=== PATIENT | female | born 1960 | race African-American/Black ===

== ENCOUNTER 2020-11-27 06:41 | Day surgery (SDC) | payer OTHER, SELFPAY ==
[2020-08-16 09:40] VITALS: BMI 32.9
--- NOTE | 2020-08-17 10:19 | P.CONAN_ITS ---
HPI - Anesthesia Eval Consult details Narrative: Resched to 10/19/20 60yo F for colonoscopy: screening [facility] Past Medical History Medical History Diabetes Diabetic neuropathy Edema of both lower extremities GERD (gastroesophageal reflux disease) History of back pain Hyperlipidemia Surgical History Surgical History History of back surgery Hx of bilateral cataract extraction Hx of cholecystectomy Hx of colonoscopy with polypectomy Social History Social History Smoking Status: Never smoker Meds Allergies Allergy/AdvReac Type Severity Reaction Status Date / Time No Known Allergies Allergy Verified 08/16/20 09:21 Home Medications Medication Instructions Recorded Confirmed Type docosahexaenoic acid-epa [Fish Oil 1 cap PO DAILY 08/16/20 08/16/20 History (with DHA-EPA)] ferrous sulfate 325 mg PO DAILY 08/16/20 08/16/20 History gabapentin 100 mg PO BID 08/16/20 08/16/20 History glyburide 5 mg PO BID 08/16/20 08/16/20 History metformin 1,000 mg PO BEDTIME 08/16/20 08/16/20 History metformin 500 mg PO DAILY@0730 08/16/20 08/16/20 History omeprazole 40 mg PO DAILY 08/16/20 08/16/20 History Exam Exam Date and Time: August 17, 2020 1019 Height,Weight and Vital Signs: Height 5 ft 3 in Weight 84.368 kg Assessment and Plan Assessment Anesthesia Assessment: Chart Reviewed
[2020-11-21 09:59] VITALS: BMI 33.3
--- NOTE | 2020-11-26 10:15 | P.CONAN_ITS ---
Documented by User: Aimee Hauser 11/26/20 10:16 HPI - Anesthesia Eval Consult details Narrative: 60yo F for Colonoscopy PMFSH Past Medical History Medical History Anemia Diabetes Diabetic neuropathy Edema of both lower extremities GERD (gastroesophageal reflux disease) History of back pain Hyperlipidemia Surgical History Surgical History History of back surgery Hx of bilateral cataract extraction Hx of cholecystectomy Hx of colonoscopy with polypectomy Social History Social History Are you a primary direct care provider to a significant other at home: No Do you presently have visiting nurse or other home services: No Smoking Status: Never smoker Use of substances other than those prescribed or required for medical reasons: No Have you been hit, kicked, punched, or otherwise hurt by someone within the past year? If so, by whom?: No Advance Directives: No Advance Directives Information Provided: No Advance Directives on File: No Recently lost weight without trying: No Meds Allergies Allergy/AdvReac Type Severity Reaction Status Date / Time No Known Allergies Allergy Verified 11/27/20 06:59 Home Medications Medication Instructions Recorded Confirmed Type docosahexaenoic acid-epa [Fish Oil 1 cap PO DAILY 08/16/20 08/16/20 History (with DHA-EPA)] ferrous sulfate 325 mg PO DAILY 08/16/20 08/16/20 History gabapentin 100 mg PO BID 08/16/20 08/16/20 History glyburide 5 mg PO BID 08/16/20 08/16/20 History metformin 1,000 mg PO BEDTIME 08/16/20 08/16/20 History metformin 500 mg PO DAILY@0730 08/16/20 08/16/20 History omeprazole 40 mg PO DAILY 08/16/20 08/16/20 History atorvastatin 1 tab PO DAILY 11/21/20 11/21/20 History multivitamin 1 tab PO DAILY 11/21/20 11/21/20 History Exam Exam Date and Time: November 26, 2020 1015 Height,Weight and Vital Signs: Height 5 ft 2.5 in Weight 83.915 kg Assessment and Plan Assessment Anesthesia Assessment: Chart Reviewed Documented by User: Ankita Ayala 11/27/20 07:16 PMFSH Past Medical History Medical History Anemia Diabetes Diabetic neuropathy Edema of both lower extremities GERD (gastroesophageal reflux disease) History of back pain Hyperlipidemia Surgical History Surgical History History of back surgery Hx of bilateral cataract extraction Hx of cholecystectomy Hx of colonoscopy with polypectomy Social History Social History Are you a primary direct care provider to a significant other at home: No Do you presently have visiting nurse or other home services: No Smoking Status: Never smoker Use of substances other than those prescribed or required for medical reasons: No Have you been hit, kicked, punched, or otherwise hurt by someone within the past year? If so, by whom?: No Advance Directives: No Advance Directives Information Provided: No Advance Directives on File: No Recently lost weight without trying: No Meds Allergies Allergy/AdvReac Type Severity Reaction Status Date / Time No Known Allergies Allergy Verified 11/27/20 06:59 Home Medications Medication Instructions Recorded Confirmed Type docosahexaenoic acid-epa [Fish Oil 1 cap PO DAILY 08/16/20 08/16/20 History (with DHA-EPA)] ferrous sulfate 325 mg PO DAILY 08/16/20 08/16/20 History gabapentin 100 mg PO BID 08/16/20 08/16/20 History glyburide 5 mg PO BID 08/16/20 08/16/20 History metformin 1,000 mg PO BEDTIME 08/16/20 08/16/20 History metformin 500 mg PO DAILY@0730 08/16/20 08/16/20 History omeprazole 40 mg PO DAILY 08/16/20 08/16/20 History atorvastatin 1 tab PO DAILY 11/21/20 11/21/20 History multivitamin 1 tab PO DAILY 11/21/20 11/21/20 History Exam Airway Mallampati Class: III TM Dist: >3cm Neck ROM: Full Heart: RRR Lungs: CTA
[2020-11-27 06:59] VITALS: BP 128/66; PULSE 90; RESP 18; TEMP 36.3; O2SAT 97
[2020-11-27 07:10] LABS: Glucose, Whole Blood 148 mg/dL (60-115)
[2020-11-27] MEDS: Lactated Ringers 1,000 ML 50 ML IVCONT (07:16)
--- NOTE | 2020-11-27 07:16 | P.OP_ITS ---
Operative Note Operative Note Date of Service: 11/27/20 Narrative: Pre-op diagnosis: colon cancer screening, hx of colon polyps Post-op diagnosis: other (Colon polyps, diverticulosis) Procedure: COLONOSCOPY TO ASCENDING COLON WITH SNARE POLYPECTOMY Consent: Indications for the procedure and potential complications of bleeding, perforation, reaction to medications and missed diagnosis were discussed with the patient and informed consent was obtained. Instrument: Olympus PCF H 190 L variable stiffness pediatric colonoscope Monitoring: Vital signs and clinical assessment, intermittent blood pressure monitoring, continuous EKG monitoring, Pulse oximetry and Carbon Dioxide monitoring were done throughout the procedure. Colon withdrawl time was 23 minutes. Procedure: The patient was placed in the left lateral decubitis position and pre-procedure medications were administered. After a digital rectal examination of the ano-rectum, the video colonoscope was inserted into the rectum and advanced through the colon to the cecum. The colonoscope was slowly withdrawn in a retrograde panoramic fashion and the colon mucosa was carefully examined including a retroflexed view of the rectum. Findings and interventions are described below. Procedure Difficulty: Without difficulty - colon was long and tortuous and there was some loop formation. Findings: Terminal Ileum: Not evaluated Cecum: Not evaluated due to poor prep - undigested vegetable matter filling the cecum Ascending Colon: A 15 mm sessile polyp in mid AC over a fold removed with a hot snare Transverse Colon: Normal Descending Colon: Normal Sigmoid Colon: Moderate diverticulosis Rectum: Normal Ano-rectum: Normal Colon preparation: Poor in the cecum and Good in the remaining colon after copious irrigation Impression and Post Procedure Diagnosis: Colonoscopy Findings: One medium sized polyp removed Poor prep in the cecum Moderate diverticulosis seen in the sigmoid colon Plan: Await pathology results Patient has an appointment on 12/25/20 in the GI Clinic with Jo Klein NP . Repeat Colonoscopy in 1 year due to poor prep in the cecum. Above findings were reviewed with the patient and colon polyps and diverticulo sis handouts were given in the discharge area Surgeon: Criss Rodriguez MD Anesthesia: MAC (Dr Hewitt) Estimated blood loss (mL): 0 Pathology: other (A. AC polyp x 1) Condition: stable Disposition: PACU
--- NOTE | 2020-11-27 07:16 | P.HPSUR_ITS ---
Pre-Procedural Eval Section A The patient is an INPATIENT: No The History & Physical has been completed within 30 days and I have reviewed it.: No Section B Chief Complaint: hx Adenomatous Polyps Details of Present Illness: She had a prior colonoscopy in 2011 and she had polyps removed at [facility]. She suffers constpation but she has a regimen to control it. She denies any upper GI problems. There are no prior problems with anesthesia or sedation. She denies any cardiac or respiratory problems. Her brother had lung and stomach cancer and at age 56. Relevant Family History (Specify if Yes): Yes Present Medications: see Short Stay Collaborative assessment Medical History: Significant History (Mood NIDDM Diabetic neuropathy Lower extremity edema High cholesterol GERD) History of Previous Operations: Relevant previous surgery/procedure and date(s) (Cholecystectomy 2018 Lumbar disc replacement ) Allergies: Allergies Allergy/AdvReac Type Severity Reaction Status Date / Time No Known Allergies Allergy Verified 11/27/20 06:59 Review of Systems Sugical H&P ROS: Negative: Constitution, Cardiovascular and Respiratory and Yes, Specify: Gastrointestinal (constipation) Exam Surgical H&P Exam: Normal: Heart, Normal: Lungs, Normal: Extremities and Normal: Abdomen Plan Diagnosis/Plan: Unchanged I have reviewed the history and physical and performed a pertinent physical examination on my patient. No changes have occurred unless specified.
[2020-11-27 08:18] VITALS: BP 97/55; PULSE 85; RESP 16; TEMP 36.6; O2SAT 98
[2020-11-27 08:33] VITALS: BP 135/71; PULSE 77; RESP 16; TEMP 36.6; O2SAT 99
--- NOTE | 2020-11-27 09:47 | HO.POSTANES ---
Post Anesthesia Evaluation Post Anesthesia Evaluation Vital Signs: Vital Signs Temp Pulse Resp BP Pulse Ox 11/27/20 08:33 97.8 F 77 16 135/71 99 11/27/20 08:18 97.8 F 85 16 97/55 L 98 11/27/20 06:59 97.3 F 90 18 128/66 97 Anesthesia: Monitored and General Mental Status: Awake Nausea/Vomiting: None Hydration: Adequate Anesthesia-Related Issues: No Anes. Related Issues
== END 2020-11-27 10:00 | disposition home or self-care (01) ==
PROVIDERS: PCP Internal Medicine; Visit Provider Internal Medicine Gastroenterology
PROC: 0DJD8ZZ Inspection of Lower Intestinal Tract, Via Natural or Artificial Opening Endoscopic (ICD-10-PCS; CPT 45378; principal; 2020-11-27 07:30)
DX: Z12.11 Encounter for screening for malignant neoplasm of colon (principal); Z86.010 Personal history of colon polyps; D12.2 Benign neoplasm of ascending colon; K57.30 Diverticulosis of large intestine without perforation or abscess without bleeding; K21.9 Gastro-esophageal reflux disease without esophagitis; E11.40 Type 2 diabetes mellitus with diabetic neuropathy, unspecified; E78.5 Hyperlipidemia, unspecified; R60.0 Localized edema; Z90.49 Acquired absence of other specified parts of digestive tract; Z79.84 Long term (current) use of oral hypoglycemic drugs; Z79.899 Other long term (current) drug therapy
CPT/HCPCS: 45385; 82947; 88305

== ENCOUNTER → 2020-12-25 12:35 | Outpatient (BNVA) | payer OTHER, SELFPAY | PROVIDERS: PCP Internal Medicine; Visit Provider Nurse Practitioner ==

== ENCOUNTER 2021-01-25 13:13 | Outpatient (REF) | payer OTHER, SELFPAY ==
[2021-01-29 16:47] LABS: HPV mRNA E6/E7 rflx Not Detected (Not Detected)
== END 2021-01-25 13:14 | disposition home or self-care (01) ==
LOC: HO.LAB 13:13
PROVIDERS: PCP Internal Medicine; Visit Provider Obstetrics & Gynecology
DX: Z12.4 Encounter for screening for malignant neoplasm of cervix (principal); N95.0 Postmenopausal bleeding; N93.0 Postcoital and contact bleeding; E11.40 Type 2 diabetes mellitus with diabetic neuropathy, unspecified; E78.5 Hyperlipidemia, unspecified; K21.9 Gastro-esophageal reflux disease without esophagitis; Z11.51 Encounter for screening for human papillomavirus (HPV)
CPT/HCPCS: 36415; 58100; 87624; 88142; 88305; 99202

== ENCOUNTER → 2021-02-08 11:22 | Outpatient (BNVA) | payer OTHER, SELFPAY | PROVIDERS: PCP Internal Medicine; Visit Provider Obstetrics & Gynecology | DX: Z78.0 Asymptomatic menopausal state (principal) ==

== ENCOUNTER 2021-02-14 11:52 | Outpatient (REF) | payer OTHER, SELFPAY ==
--- NOTE | ~2021-02-14 | US_ITS ---
EXAMINATION: ULTRASOUND PELVIS AND TRANSVAGINAL CLINICAL INFORMATION: Asymptomatic menopausal state COMPARISON: None TECHNIQUE: Transabdominal and transvaginal vaginal ultrasound the pelvis is performed. FINDINGS: The uterus is retroflexed measuring 5.0 cm in length, 3.5 cm in AP and 3.5 cm in transverse dimension. The uterus is homogeneous in echotexture with multiple echogenic calcifications. There is no focal lesion seen. Endometrial thickness measures 0.2 cm with small amount of fluid within the endometrial canal. Right ovary measures 1.8 x 1.8 x 1.1 cm and volume 1.9 mL. It appears unremarkable. Left ovary measures 1.2 x 1.3 x 0.9 cm and volume 0.7 mL. It appears unremarkable. There is no free fluid in cul-de-sac. US/US pelvic and transvaginal IMPRESSION: The uterus is retroflexed and homogeneous in echotexture but with several echogenic microcalcifications. There is a 0.2 cm free fluid in the endometrial canal. The ovaries are unremarkable.
== END 2021-02-14 11:53 | disposition home or self-care (01) ==
LOC: HO.US 11:52
PROVIDERS: PCP Internal Medicine; Visit Provider Obstetrics & Gynecology
DX: Z78.0 Asymptomatic menopausal state (principal)
CPT/HCPCS: 76830; 76856

== ENCOUNTER → 2021-02-20 11:33 | Outpatient (BNVA) | payer OTHER, SELFPAY | PROVIDERS: PCP Internal Medicine; Visit Provider Obstetrics & Gynecology ==

== ENCOUNTER → 2022-03-11 11:49 | Outpatient (BNVA) | payer OTHER, SELFPAY | PROVIDERS: PCP Internal Medicine; Referring Provider Internal Medicine; Visit Provider Nurse Practitioner | DX: D12.6 Benign neoplasm of colon, unspecified (principal); R60.0 Localized edema; E11.9 Type 2 diabetes mellitus without complications | CPT/HCPCS: 99212 ==

== ENCOUNTER 2022-05-22 11:32 | Outpatient (REF) | payer OTHER, SELFPAY ==
--- NOTE | ~2022-05-22 | MM_ITS ---
EXAMINATION: MM SCREENING DIGITAL BREAST TOMOSYNTHESIS, BILATERAL CLINICAL INFORMATION: Screening. Asymptomatic. The lifetime risk of breast cancer based on the Tyrer-Cuzick Model is 8%. COMPARISON: Outside mammography: 06/15/2015, 09/26/2014, 05/31/2014 ([place]) TECHNIQUE: Digital breast tomosynthesis is performed in both the craniocaudal and mediolateral oblique views along with computer-aided detection (CAD). Synthesized 2D images are generated from the tomosynthesis. FINDINGS: There are scattered areas of fibroglandular density (ACR BI-RADS breast composition Category b). There are no significant masses, abnormal calcifications, or other abnormalities. Parenchymal pattern is similar to prior outside studies. The axilla and skin contours are unremarkable. No significant changes. MM/MM tomosynthesis screening BI IMPRESSION: No mammographic evidence of malignancy. ASSESSMENT: BI-RADS 1: Negative RECOMMENDATION: Routine annual mammography screening. This patient's information was entered into a reminder system with a target due date for their next mammogram.
== END 2022-05-22 11:33 | disposition home or self-care (01) ==
LOC: HO.MAMMO 11:32
PROVIDERS: Visit Provider Internal Medicine
DX: Z12.31 Encounter for screening mammogram for malignant neoplasm of breast (principal)
CPT/HCPCS: 77063; 77067

== ENCOUNTER → 2023-01-23 14:42 | Outpatient (BNVA) | payer OTHER, SELFPAY | PROVIDERS: PCP Internal Medicine; Visit Provider Urology | DX: N39.0 Urinary tract infection, site not specified (principal); N32.81 Overactive bladder; R32 Unspecified urinary incontinence; N95.2 Postmenopausal atrophic vaginitis; E11.40 Type 2 diabetes mellitus with diabetic neuropathy, unspecified; Z87.19 Personal history of other diseases of the digestive system; Z79.4 Long term (current) use of insulin | CPT/HCPCS: 51798; 99212 ==

== ENCOUNTER 2023-02-06 11:53 | Day surgery (SDC) | payer OTHER, SELFPAY ==
[2023-01-30 19:58] VITALS: BMI 32.2
[2023-02-06] VITALS (7 sets, daily range): BP systolic 111–128; BP diastolic 50–70; PULSE 81–91; RESP 16–20; TEMP 36.2–36.7; O2SAT 95–100; BMI 32.8
--- NOTE | 2023-02-06 12:05 | MHC.SHP ---
Pre-Procedural Eval Section A Date of Service: 02/06/23 The patient is an INPATIENT: No The History & Physical has been completed within 30 days and I have reviewed it.: No Section B Chief Complaint: screening, history of polyps Details of Present Illness: Colon cancer screening, history of colon polyps Relevant Family History (Specify if Yes): No Relevant Social History: Tobacco Use (Past smoker) Present Medications: see Short Stay Collaborative assessment Medical History: Significant History (Anemia Diabetes Diabetic neuropathy Edema of both lower extremities GERD (gastroesophageal reflux disease) History of back pain Hyperlipidemia) History of Previous Operations: Relevant previous surgery/procedure and date(s) (History of back surgery Hx of bilateral cataract extraction Hx of cholecystectomy Hx of colonoscopy with polypectomy) Allergies: Allergies Allergy/AdvReac Type Severity Reaction Status Date / Time No Known Allergies Allergy Verified 01/23/23 15:02 Review of Systems Sugical H&P ROS: Negative: Constitution, Cardiovascular, Respiratory and Gastrointestinal Exam Surgical H&P Exam: Normal: Heart, Normal: Lungs, Normal: Extremities and Normal: Abdomen Plan Diagnosis/Plan: Unchanged I have reviewed the history and physical and performed a pertinent physical examination on my patient. No changes have occurred unless specified. Time Spent With Patient Time: Total time managing care of this patient today ____ minutes.
[2023-02-06 12:26] LABS: Glucose, Whole Blood 66 mg/dL (60-115)
[2023-02-06] MEDS: Lactated Ringers 1,000 ML 50 ML IVCONT (12:31)
--- NOTE | 2023-02-06 12:34 | PC.NURSE ---
pt poc 67 asymptomatic took full dose of insulin last pm & glybueide and metformin. d5w 100ml x [address] Montejo, anesthesiologist.
[2023-02-06 12:42] LABS: Glucose, Whole Blood 82 mg/dL (60-115)
--- NOTE | 2023-02-06 14:25 | W.PM.OPN ---
Operative Note Operative Note Date of Service: 02/06/23 Narrative: COLONOSCOPY TILL CECUM Pre-op diagnosis: Post-op diagnosis:? Endoscopist:? Criss Rodriguez MD Anesthesia:?MAC Consent: Indications for the procedure and potential complications of bleeding, perforation, reaction to medications and missed diagnosis were discussed with the patient and informed consent was obtained. Instrument: Olympus PCF H 190 L variable stiffness pediatric colonoscope Monitoring: Vital signs and clinical assessment, intermittent blood pressure monitoring, continuous EKG monitoring, Pulse oximetry and Carbon Dioxide monitoring were done throughout the procedure. Please see anesthesia flowsheet. Colon withdrawl time was 12 minutes. Procedure: The patient was placed in the left lateral decubitis position and pre-procedure medications were administered. After a digital rectal examination of the ano-rectum, the video colonoscope was inserted into the rectum and advanced through the colon to the cecum. The colonoscope was slowly withdrawn in a retrograde panoramic fashion and the colon mucosa was carefully examined including a retroflexed view of the rectum. Findings and interventions are described below. Procedure Difficulty: Colon was long and tortuous and there was recurrent loop formation. Patient was placed in the supine position and LLQ pressure was applied to intubate the cecum Findings: Terminal Ileum: Not evaluated Cecum: Mild melanosis coli throughout the colon Ascending Colon: Mild melanosis coli throughout the colon Transverse Colon: Mild melanosis coli throughout the colon Descending Colon: Mild melanosis coli throughout the colon Sigmoid Colon: Mild melanosis coli throughout the colon Moderate diverticulosis Rectum: A 10 mm nonbleeding AVM in the rectum. Ano-rectum: Moderate internal hemorrhoids Colon preparation: Excellent Impression and Post Procedure Diagnosis: Colonoscopy Findings: No polyps were detected Mild melanosis coli throughout the colon Moderate diverticulosis seen in the sigmoid colon Moderate hemorrhoids on retroflexed exam. Plan: Patient has an appointment on 02/20/23 in the GI Clinic with Jo Klein NP. Repeat Colonoscopy in 5 years (due to a hx of adenomatous colon polyps). Above findings were reviewed with the patient and diverticulosis handouts was given in the discharge area
[2023-02-06 14:42] LABS: Glucose, Whole Blood 53 mg/dL (60-115)
[2023-02-06 14:59] LABS: Glucose, Whole Blood 47 mg/dL (60-115)
[2023-02-06 15:32] LABS: Glucose, Whole Blood 73 mg/dL (60-115)
== END 2023-02-06 15:58 | disposition home or self-care (01) ==
PROVIDERS: PCP Internal Medicine; Visit Provider Internal Medicine Gastroenterology
PROC: 0DJD8ZZ Inspection of Lower Intestinal Tract, Via Natural or Artificial Opening Endoscopic (ICD-10-PCS; CPT 45378; principal; 2023-02-06 12:50)
DX: Z12.11 Encounter for screening for malignant neoplasm of colon (principal); Z86.010 Personal history of colon polyps; K63.89 Other specified diseases of intestine; K57.30 Diverticulosis of large intestine without perforation or abscess without bleeding; K64.8 Other hemorrhoids; K55.20 Angiodysplasia of colon without hemorrhage; K21.9 Gastro-esophageal reflux disease without esophagitis; E78.5 Hyperlipidemia, unspecified; D64.9 Anemia, unspecified; R60.0 Localized edema; E11.40 Type 2 diabetes mellitus with diabetic neuropathy, unspecified; Z79.4 Long term (current) use of insulin; Z79.899 Other long term (current) drug therapy; Z90.49 Acquired absence of other specified parts of digestive tract; Z87.891 Personal history of nicotine dependence
CPT/HCPCS: 45378; 82947

== ENCOUNTER → 2023-02-20 11:30 | Outpatient (BNVA) | payer OTHER, SELFPAY | PROVIDERS: PCP Internal Medicine; Visit Provider Nurse Practitioner | DX: N95.0 Postmenopausal bleeding (principal); K59.00 Constipation, unspecified; D12.6 Benign neoplasm of colon, unspecified | CPT/HCPCS: 99212 ==

== ENCOUNTER 2023-06-01 19:20 | Outpatient (REF) | payer OTHER, SELFPAY ==
[2023-06-02 14:16] LABS: BV Int Neg Control Negative (Negative); BV Int Pos Control Positive (Positive)
== END 2023-06-01 19:21 | disposition home or self-care (01) ==
LOC: HO.HHCLNP 19:20
PROVIDERS: Visit Provider Student in an Organized Health Care Education/Training Program
DX: R30.0 Dysuria (principal)
CPT/HCPCS: 87480; 87510; 87660

== ENCOUNTER 2023-07-07 11:47 | Outpatient (AMB) | payer OTHER, SELFPAY ==
[2023-07-07 11:54] VITALS: BP 123/60; PULSE 98; BMI 35.6
--- NOTE | 2023-07-07 11:54 | A.OFFVIS_ITS ---
Intake Vital Signs 07/07/23 11:54 Height 5 ft 3 in Weight 201 lb BMI 35.6 BP 123/60 Blood Pressure Location Rt brachial Position Sitting Pulse 98 Intake Visit Reasons: hemorrhoids Intake Note: Patient referred for hemorrhoids. Had colonoscopy last year. C/o bleeding with BM. aking Senakot, herbal teas. [employer] Required: No Accompanied by: Self / Same As Patient Allergies No Known Allergies Allergy (Verified 07/07/23 11:56) HPI HPI Comments History of Present Illness Details Patient presents for evaluation of a prolapsed hemorrhoid 6 months ago. This is the only episode with this happen. It spontaneously reduced. She has never had such symptoms before. Patient has had multiple colonoscopies last of which was approximately year ago. Chart was reviewed and patient evaluated. Patient has no other GI issues or complaints. She is actually being followed for by Urology for urinary issues. She was post to have a cystoscopy and was apprehensive about doing so and did not follow-up with a urologist. I suggest that she does do this in the future. [facility] Medical History Acute arthritis Anemia Diabetes Diabetes Diabetic neuropathy Edema of both lower extremities GERD (gastroesophageal reflux disease) History of back pain Hyperlipidemia Proteinuria Surgical History History of back surgery Hx of bilateral cataract extraction Hx of cholecystectomy Hx of colonoscopy with polypectomy Social History Household Members: Family and Children Are you a primary direct support professional caregiver to a significant other at home: No Do you presently have visiting nurse or other home services: No Alcohol intake: current Alcohol intake frequency: does not drink Patient Tobacco Use Status: Never used Tobacco Physical Exam Vital Signs: Last Vital Signs Pulse 98 07/07/23 11:54 BP 123/60 07/07/23 11:54 BMI result Body Mass Index 35.6 GI Other: Abdomen soft, corpulent, benign Rectal exam demonstrates 2 small active external hemorrhoids. With Valsalva, no extrusion or internal hemorrhoids demonstrated. Assessment & Plan Assessment & Plan (1) Hemorrhoid: Code(s): K64.9 - Unspecified hemorrhoids Plan At the present time, we treated patient conservatively regarding her hemorrhoids. Patient will follow-up p.r.n. I again suggested follow-up with her urologist and was given a printout of this physician, Dr. Felton stuart as a reminder. Patient also would like to be evaluated for genetic testing. Application sheet will be filled out and see if the patient is a candidate for genetic testing. Dashawn our office nurse will follow-up regarding this. Coding Level of Care Code New Pt Level 4 (88278) Diagnoses Hemorrhoid K64.9
== END 2023-07-07 12:18 | disposition home or self-care (01) ==
PROVIDERS: PCP Internal Medicine; Visit Provider Surgery
DX: K64.9 Unspecified hemorrhoids (principal)
CPT/HCPCS: 99204

== ENCOUNTER → 2023-07-07 11:47 | Outpatient (BNVA) | payer OTHER, SELFPAY | PROVIDERS: PCP Internal Medicine; Visit Provider Surgery | DX: K64.4 Residual hemorrhoidal skin tags (principal) | CPT/HCPCS: 99202 ==

== ENCOUNTER 2023-07-23 14:02 | Outpatient (REF) | payer OTHER, SELFPAY | END 2023-07-23 14:03 | disposition home or self-care (01) | LOC: HO.CHCLNP 14:02 | PROVIDERS: Visit Provider Internal Medicine | DX: N39.0 Urinary tract infection, site not specified (principal) | CPT/HCPCS: 87086; 87088; 87186 ==

== ENCOUNTER 2023-08-13 13:15 | Outpatient (REF) | payer OTHER, SELFPAY ==
--- NOTE | ~2023-08-13 | US_ITS ---
EXAMINATION: US VENOUS ULTRASOUND WITH DOPPLER LOWER EXTREMITY, RIGHT CLINICAL INFORMATION: Right lower extremity pain and swelling. COMPARISON: None available. TECHNIQUE: Ultrasound of the deep veins is performed from the hip to the calf with compression sonography and color and pulse Doppler assessment. Spectral analysis with color-flow imaging is performed. FINDINGS: There is normal venous compression and respiratory variation and augmented flow. The visualized common femoral vein, superficial femoral vein, profunda femoral vein, popliteal vein, and the trifurcation region shows no evidence of deep venous thrombosis. There is no significant popliteal fossa cyst. If the patient's symptoms persist, followup ultrasound in 5 days 7 days might be of value to exclude proximal propagation from a non-visualized calf vein. US/US venous duplex LE RT IMPRESSION: No DVT demonstrated in the right lower extremity.
== END 2023-08-13 13:16 | disposition home or self-care (01) ==
LOC: HO.US 13:15
PROVIDERS: PCP Internal Medicine; Visit Provider Internal Medicine
DX: M79.89 Other specified soft tissue disorders (principal)
CPT/HCPCS: 93971

== ENCOUNTER 2023-08-18 13:11 | Outpatient (AMB) | payer OTHER, SELFPAY ==
--- NOTE | 2023-08-18 13:20 | A.OFFVIS_ITS ---
Intake Vital Signs 08/18/23 13:25 Height 5 ft 3 in Weight 202 lb BMI 35.8 BP 132/62 Blood Pressure Location Rt brachial Position Sitting Pulse 86 Intake Visit Reasons: genetic test results *HERE* Intake Note: Patient here to discuss genetic testing results. [facility] Required: No Accompanied by: Self / Same As Patient Allergies No Known Allergies Allergy (Verified 08/18/23 13:26) HPI HPI Comments History of Present Illness Details Patient presents status post her genetic testing. Her hemorrhoidal symptoms of mood generally subsided. Patient has had recent colonoscopy x2. Her testing essentially following her at above average risk for colorectal pathology. Patient gets colonoscopy every 5 years. PFSH Medical History Acute arthritis Diabetes Proteinuria Anemia Edema of both lower extremities GERD (gastroesophageal reflux disease) Hyperlipidemia History of back pain Diabetic neuropathy Diabetes Surgical History History of back surgery Hx of cholecystectomy Hx of bilateral cataract extraction Hx of colonoscopy with polypectomy Social History Household Members: Family and Children Are you a primary animal care taker to a significant other at home: No Do you presently have visiting nurse or other home services: No Alcohol intake: current Alcohol intake frequency: does not drink Patient Tobacco Use Status: Never used Tobacco Physical Exam Vital Signs: Last Vital Signs Pulse 86 08/18/23 13:25 BP 132/62 08/18/23 13:25 BMI result Body Mass Index 35.8 GI Other: Abdomen soft, benign Assessment & Plan Assessment & Plan (1) Hemorrhoid: Code(s): K64.9 - Unspecified hemorrhoids Plan All questions were answered. Patient will follow-up with her GI doctor as directed. She will follow-up with his office p.r.n.. Recommendations for keeping her stools soft reviewed including staying hydrated, salads /fiber, Metamucil, Citrucel, etc.. Avoiding prolonged sitting on the toilet. Coding Level of Care Code Est Pt Level 4 (09871) Diagnoses Hemorrhoid K64.9
[2023-08-18 13:25] VITALS: BP 132/62; PULSE 86; BMI 35.8
== END 2023-08-18 13:31 | disposition home or self-care (01) ==
PROVIDERS: PCP Internal Medicine; Visit Provider Surgery
DX: K64.9 Unspecified hemorrhoids (principal)
CPT/HCPCS: 99214

== ENCOUNTER → 2023-08-18 13:11 | Outpatient (BNVA) | payer OTHER, SELFPAY | PROVIDERS: PCP Internal Medicine; Visit Provider Surgery | DX: K64.9 Unspecified hemorrhoids (principal) | CPT/HCPCS: 99212 ==

== ENCOUNTER 2023-09-01 14:47 | Outpatient (AMB) | payer OTHER, SELFPAY ==
[2023-09-01 14:49] VITALS: BP 98/54; BMI 35.8
--- NOTE | 2023-09-01 14:49 | MHC.OFFVIS ---
Intake Vital Signs 09/01/23 14:49 Height 5 ft 3 in Weight 202 lb BMI 35.8 BP 98/54 L Intake Visit Reasons: New patient PMB Intake Note: 6 months ago brown blood x3 days Executive Producer Promos: Executive Producer Promos Present (Megan) Allergies No Known Allergies Allergy (Verified 09/01/23 14:49) HPI New patient PMB HPI Details Patient is here today for concerns that six months ago she bleed randomly, and also after intimacy. She denies any pelvic pain. Currently sexually active with same partner. She denies any pelvic pain or current urinary symptoms. She has frequent UTI's and is taking Cranberry extracts for prevention. She had a EMB 2 yrs. ago and thought it was very painful, she does not believes she could have that done again. Sample was sparse. [facility] Medical History Acute arthritis Diabetes Proteinuria Anemia Edema of both lower extremities GERD (gastroesophageal reflux disease) Hyperlipidemia History of back pain Diabetic neuropathy Diabetes Surgical History (Updated 09/01/23 @ 14:55 by CIRILO Gallardo) Hx of section History of back surgery Hx of cholecystectomy Hx of bilateral cataract extraction Hx of colonoscopy with polypectomy Family History (Updated 09/01/23 @ 14:54 by CIRILO Gallardo) Paternal Aunt History of breast cancer Sister Ovarian cancer Brother Lung cancer Social History Household Members: Family and Children Are you a primary healthcare corporate account director to a significant other at home: No Do you presently have visiting nurse or other home services: No Alcohol intake: current Alcohol intake frequency: does not drink Patient Tobacco Use Status: Never used Tobacco Female Reproductive History Menstrual Age of menopause: 52 Total pregnancies: 4 Full term: 3 Number of Living Children: 3 Ab spontaneous: 1 Date of last pap smear: 01/25/21 (neg pap and hpv) Review of Systems Const All systems reviewed & are unremarkable except as noted in HPI and below Physical Exam Vital Signs: Last Vital Signs BP 98/54 L 09/01/23 14:49 BMI result Body Mass Index 35.8 Const General: cooperative, healthy appearing and no acute distress Orientation/consciousness: patient oriented x3 GI Inspection: Yes normal to inspection and Yes obesity Palpation (GI): Soft to palpation and Other GI palpation findings present (Nontender) Rectal Exam - Female: visual inspection normal General: Yes bladder normal to palpation External Female Exam: normal appearance of the urethra and other (large soft tissue mass- lower left labia-extending into left gluteal ) Speculum Exam - Vagina: normal appearance of the vagina, normal palpation, normal vaginal discharge and vagina atrophic Speculum Exam - Cervix: normal appearance of the cervix and normal palpation Bimanual exam- vagina & uterus: normal bimanual exam, normal palpation, uterine size normal, bladder normal to palpation, normal palpation, uterine shape normal and non-tender Bimanual Exam- Adnexa, other: normal adnexae Neuro General: patient oriented x3 Assessment & Plan Assessment & Plan (1) PMB (postmenopausal bleeding): Code(s): N95.0 - Postmenopausal bleeding Plan: Discussed: 1. Work up including ultrasound and endometrial biopsy(EMB). The purpose of the EMB is to rule out any abnormal changes such as atypia, hyperplasia and carcinoma. EMB procedure reviewed. Instructions to eat and hydrate beforehand. Take an OTC medication if no allergies or contraindications. Ibuprofen 600mg (3- 200mg tabs), or Tylenol (2-325mg tabs) with food, one hour before your appointment. If you experience any heavy/prolonged bleeding go directly to the ED. She reports she is not able to do this in the room as it was very painful last time. 2. Soft tissue mass of left labia/gluteal area-plan extremity US for evaluation. All of her questions and concerns were addressed to the best of my ability. She is agreeable to the plan of care. RTO for US within 2 weeks. Consider EMB under anesthesia-will discuss in details at her next visit. (2) PCB (post coital bleeding): Code(s): N93.0 - Postcoital and contact bleeding Plan: Resolved: observe for any bleeding. (3) Mass of buttock: Code(s): R22.2 - Localized swelling, mass and lump, trunk Orders: Orders Pap Smear Today N95.0 - Postmenopausal bleeding US pelvic and transvaginal Today N93.0 - Postcoital and contact bleeding, N95.0 - Postmenopausal bleeding US extremity nonvascular Today R22.2 - Localized swelling, mass and lump, trunk Bacterial Vaginosis Panel Today N95.0 - Postmenopausal bleeding CT NG by PCR Today N95.0 - Postmenopausal bleeding Coding Level of Care Code Est Pt Level 4 (87157) Diagnoses PMB (postmenopausal bleeding) N95.0 PCB (post coital bleeding) N93.0 Mass of buttock R22.2
== END 2023-09-01 15:23 | disposition home or self-care (01) ==
PROVIDERS: Visit Provider Advanced Practice Midwife
DX: N95.0 Postmenopausal bleeding (principal); N93.0 Postcoital and contact bleeding; R22.2 Localized swelling, mass and lump, trunk
CPT/HCPCS: 99214

== ENCOUNTER 2023-09-01 14:47 | Outpatient (REF) | payer OTHER, SELFPAY ==
[2023-09-04 06:23] LABS: HPV mRNA E6/E7 rflx Not Detected (Not Detected)
== END 2023-09-01 14:48 | disposition home or self-care (01) ==
LOC: HO.LNP 14:47
PROVIDERS: Visit Provider Advanced Practice Midwife
DX: N95.0 Postmenopausal bleeding (principal); N93.0 Postcoital and contact bleeding; R22.2 Localized swelling, mass and lump, trunk; Z11.51 Encounter for screening for human papillomavirus (HPV); Z12.4 Encounter for screening for malignant neoplasm of cervix
CPT/HCPCS: 87624; 88142; 99212

== ENCOUNTER 2023-09-01 15:17 | Outpatient (REF) | payer OTHER, SELFPAY ==
[2023-09-02 01:22] LABS: CT PCR NOT DETECTED (Not Detect.); NG PCR NOT DETECTED (Not Detect.)
[2023-09-02 11:20] LABS: BV Int Neg Control Negative (Negative); BV Int Pos Control Positive (Positive)
== END 2023-09-01 15:18 | disposition home or self-care (01) ==
LOC: HO.LAB 15:17
PROVIDERS: Visit Provider Advanced Practice Midwife
DX: N95.0 Postmenopausal bleeding (principal)
CPT/HCPCS: 0353U; 87480; 87510; 87660

== ENCOUNTER 2023-09-21 14:44 | Outpatient (REF) | payer OTHER, SELFPAY ==
--- NOTE | ~2023-09-21 | US_ITS ---
EXAMINATION: US PELVIS ULTRASOUND VULVA CLINICAL INFORMATION: Postmenopausal bleeding and left labial mass. COMPARISON: None available. TECHNIQUE: Ultrasound of the pelvis and vulva is performed using both transabdominal and transvaginal transducers along with Doppler. Transvaginal imaging is performed due to inadequate visualization transabdominally. FINDINGS: Uterus: The uterus is retroverted and retroflexed. The uterus measures 8.0 x 3.2 x 3.8 cm. A 3 mm myometrial calcifications noted, likely related to a small fibroid. The double wall endometrial thickness is 0.3 mm. The uterus is smooth in contour and has normal myometrial echogenicity. No visible fibroid. Adnexa: Both ovaries are visualized. There is normal color flow to the adnexa. There is no ovarian torsion. There is no pelvic ascites or fluid collection. Right ovary measures 2.1 x 1.2 x 1.5 cm, volume 2.0 mL. The right ovary contains a 1.0 cm simple physiologic follicle. Left ovary measures 1.4 x 1.0 x 1.1 cm, volume 0.9 mL. The left ovary contains a 9 mm simple physiologic follicle. Vulva: Within the left labia majora, there is a 4 x 2 mm subdermal cyst. There is an adjacent focus of subcutaneous fat edema measuring 3.8 x 1.7 x 3.6 cm. US/US pelvic and transvaginal IMPRESSION: 1. Within the left labia majora, there is a 4 mm subdermal cyst with adjacent edema. The findings favor an infected Bartholin's gland cyst. This should be managed on a clinical basis. 2. Unremarkable ultrasound examination of the pelvis.
--- NOTE | ~2023-09-21 | US_ITS ---
EXAMINATION: US PELVIS ULTRASOUND VULVA CLINICAL INFORMATION: Postmenopausal bleeding and left labial mass. COMPARISON: None available. TECHNIQUE: Ultrasound of the pelvis and vulva is performed using both transabdominal and transvaginal transducers along with Doppler. Transvaginal imaging is performed due to inadequate visualization transabdominally. FINDINGS: Uterus: The uterus is retroverted and retroflexed. The uterus measures 8.0 x 3.2 x 3.8 cm. A 3 mm myometrial calcifications noted, likely related to a small fibroid. The double wall endometrial thickness is 0.3 mm. The uterus is smooth in contour and has normal myometrial echogenicity. No visible fibroid. Adnexa: Both ovaries are visualized. There is normal color flow to the adnexa. There is no ovarian torsion. There is no pelvic ascites or fluid collection. Right ovary measures 2.1 x 1.2 x 1.5 cm, volume 2.0 mL. The right ovary contains a 1.0 cm simple physiologic follicle. Left ovary measures 1.4 x 1.0 x 1.1 cm, volume 0.9 mL. The left ovary contains a 9 mm simple physiologic follicle. Vulva: Within the left labia majora, there is a 4 x 2 mm subdermal cyst. There is an adjacent focus of subcutaneous fat edema measuring 3.8 x 1.7 x 3.6 cm. US/US extremity nonvascular IMPRESSION: 1. Within the left labia majora, there is a 4 mm subdermal cyst with adjacent edema. The findings favor an infected Bartholin's gland cyst. This should be managed on a clinical basis. 2. Unremarkable ultrasound examination of the pelvis.
== END 2023-09-21 14:45 | disposition home or self-care (01) ==
LOC: HO.US 14:44
PROVIDERS: Visit Provider Advanced Practice Midwife
DX: R22.2 Localized swelling, mass and lump, trunk (principal); N95.0 Postmenopausal bleeding; N93.0 Postcoital and contact bleeding
CPT/HCPCS: 76830; 76856; 76882

== ENCOUNTER 2023-10-30 16:26 | Outpatient (REF) | payer OTHER, SELFPAY | END 2023-10-30 16:27 | disposition home or self-care (01) | LOC: HO.CHCLNP 16:26 | PROVIDERS: Visit Provider Internal Medicine | DX: N30.01 Acute cystitis with hematuria (principal) | CPT/HCPCS: 87086; 87088; 87186 ==

== ENCOUNTER → 2023-11-13 13:40 | Outpatient (BNVA) | payer OTHER, SELFPAY | PROVIDERS: Visit Provider Advanced Practice Midwife | DX: M79.89 Other specified soft tissue disorders (principal); Z87.42 Personal history of other diseases of the female genital tract | CPT/HCPCS: 99212 ==

== ENCOUNTER 2023-11-13 13:41 | Outpatient (AMB) | payer OTHER, SELFPAY ==
--- NOTE | 2023-11-13 13:41 | A.OFFVIS_ITS ---
Intake Vital Signs 11/13/23 13:45 Height 5 ft 3 in Weight 200 lb 9.93 oz BMI 35.5 BP 112/70 Intake Visit Reasons: US follow up Hazardous Materials Handler Required: No Information Interpreted: non-clinical & clinical Sharepoint Solutions Developer: Sharepoint Solutions Developer Present (Dawn KERR) Accompanied by: Self / Same As Patient Allergies No Known Allergies Allergy (Verified 11/13/23 13:47) Post menopausal: Yes HPI HPI Comments History of Present Illness Details Patient is here for a follow-up ultrasound, she was unsure of what her visit was for today prior visit she had a labial gluteal left-sided mass of the soft tissue. Approximately 9 months ago she had some vaginal bleeding. She reports a prior endometrial biopsy was performed and it was very painful she does not want to have an endometrial biopsy today. She reports being concerned about her urinary frequency and incontinence which she reports will be the of me . She reports being up all night urinating, and she is exhausted, she has been to multiple doctors and does not have a solution to her situation she is frustrated. [facility] Medical History Acute arthritis Diabetes Proteinuria Anemia Edema of both lower extremities GERD (gastroesophageal reflux disease) Hyperlipidemia History of back pain Diabetic neuropathy Diabetes Surgical History (Updated 09/01/23 @ 14:55 by CIRILO Gallardo) Hx of section History of back surgery Hx of cholecystectomy Hx of bilateral cataract extraction Hx of colonoscopy with polypectomy Family History (Updated 09/01/23 @ 14:54 by CIRILO Gallardo) Paternal Aunt History of breast cancer Sister Ovarian cancer Brother Lung cancer Social History Household Members: Family and Children Are you a primary intensive care specialist to a significant other at home: No Do you presently have visiting nurse or other home services: No Alcohol intake: current Alcohol intake frequency: does not drink Patient Tobacco Use Status: Never used Tobacco Review of Systems Const All systems reviewed & are unremarkable except as noted in HPI and below Physical Exam Vital Signs: Last Vital Signs BP 112/70 11/13/23 13:45 BMI result Body Mass Index 35.5 Const General: cooperative, healthy appearing and no acute distress Orientation/consciousness: patient oriented x3 GI Inspection: Yes normal to inspection Palpation (GI): Soft to palpation and Other GI palpation findings present (Nontender) Rectal Exam - Female: visual inspection normal Other: Large fatty tissue mass of the left gluteal area extending to the labia, nontender. Speculum Exam - Cervix: normal appearance of the cervix Neuro General: patient oriented x3 Results Reviewed Results Reviewed: [address] [address] Ultrasound Report Signed Patient: Rin Garcia MR#: [id number] : 1960 Acct:[id number] Age/Sex: 63 / F ADM Date: 09/21/23 Loc: HO.US Attending Dr: Courtney Seymour CNM Ordering Physician: Courtney Seymour CNM Date of Service: 09/21/23 Procedure(s): US pelvic and transvaginal Accession Number(s): [id number] cc: Courtney Seymour CNM~ EXAMINATION: US PELVIS ULTRASOUND VULVA CLINICAL INFORMATION: Postmenopausal bleeding and left labial mass. COMPARISON: None available. TECHNIQUE: Ultrasound of the pelvis and vulva is performed using both transabdominal and transvaginal transducers along with Doppler. Transvaginal imaging is performed due to inadequate visualization transabdominally. FINDINGS: Uterus: The uterus is retroverted and retroflexed. The uterus measures 8.0 x 3.2 x 3.8 cm. A 3 mm myometrial calcifications noted, likely related to a small fibroid. The double wall endometrial thickness is 0.3 mm. The uterus is smooth in contour and has normal myometrial echogenicity. No visible fibroid. Adnexa: Both ovaries are visualized. There is normal color flow to the adnexa. There is no ovarian torsion. There is no pelvic ascites or fluid collection. Right ovary measures 2.1 x 1.2 x 1.5 cm, volume 2.0 mL. The right ovary contains a 1.0 cm simple physiologic follicle. Left ovary measures 1.4 x 1.0 x 1.1 cm, volume 0.9 mL. The left ovary contains a 9 mm simple physiologic follicle. Vulva: Within the left labia majora, there is a 4 x 2 mm subdermal cyst. There is an adjacent focus of subcutaneous fat edema measuring 3.8 x 1.7 x 3.6 cm. US/US pelvic and transvaginal IMPRESSION: 1. Within the left labia majora, there is a 4 mm subdermal cyst with adjacent edema. The findings favor an infected Bartholin's gland cyst. This should be managed on a clinical basis. 2. Unremarkable ultrasound examination of the pelvis. Dictated By: Robert Manuel MD Signed By: <Electronically signed by Robert Manuel MD in OV> 09/22/23 1916 DD/ 1514 TD/TT: Mercury Washer: MADINA Assessment & Plan Assessment & Plan (1) Soft tissue mass: Code(s): M79.89 - Other specified soft tissue disorders (2) History of postmenopausal bleeding: Code(s): Z87.42 - Personal history of other diseases of the female genital tract (3) Encounter to discuss test results: Code(s): Z71.2 - Person consulting for explanation of examination or test findings Plan Discussed ultrasound findings: Soft tissue mass is nontender patient is not bothered by it it appears to be a fatty lipoma. Advised if it increases in size and becomes difficult to sit or enlarges and becomes at all painful she should report back to her primary care and consider a surgical consult if needed. Postmenopausal bleeding episodes advised to repeat her EMB due to the scant tissue on the sample in 2020 and the repeated bleeding episode thereafter. Patient was adamant not to have a biopsy she feels fine and would rather just call and come in if it happens again. I discussed with her the risks undiagnosed uterine cancer atypia or hyperplasia, if delay in care prognosis can be effected. I do not agree with her waiting for an endometrial biopsy to be repeated. I also offered her a consult with Dr. De Paz for a hysteroscopy to be done in the operating room under anesthesia so that she would not be uncomfortable. Patient is adamant not to have a biopsy today. She agrees to be scheduled for an annual exam in December or January this year. Coding Level of Care Code Est Pt Level 3 (26653) Diagnoses Soft tissue mass M79.89 History of postmenopausal bleeding Z87.42 Encounter to discuss test results Z71.2
[2023-11-13 13:45] VITALS: BP 112/70; BMI 35.5
== END 2023-11-13 14:08 | disposition home or self-care (01) ==
PROVIDERS: Visit Provider Advanced Practice Midwife
DX: M79.89 Other specified soft tissue disorders (principal); Z87.42 Personal history of other diseases of the female genital tract; Z71.2 Person consulting for explanation of examination or test findings
CPT/HCPCS: 99213

== ENCOUNTER 2023-12-03 09:59 | Outpatient (REF) | payer OTHER, SELFPAY ==
--- NOTE | ~2023-12-03 | XR_ITS ---
EXAMINATION: XR SHOULDER, LEFT CLINICAL INFORMATION: Pain COMPARISON: None available. TECHNIQUE: AP external rotation, Grashey, scapular Y, and axillary views of the left shoulder. FINDINGS: The bones and soft tissues are normal. No fracture. Glenohumeral and acromioclavicular alignment is anatomic with normal joint space. No abnormal soft tissue calcifications. XR/XR shoulder LT min 2V IMPRESSION: Normal left shoulder.
== END 2023-12-03 10:00 | disposition home or self-care (01) ==
LOC: HO.HOSX 09:59
PROVIDERS: Visit Provider Orthopaedic Surgery
DX: M25.512 Pain in left shoulder (principal)
CPT/HCPCS: 73030; 99212

== ENCOUNTER 2023-12-03 13:25 | Outpatient (AMB) | payer OTHER, SELFPAY ==
[2023-12-03 13:03] VITALS: BMI 35.4
--- NOTE | 2023-12-03 13:03 | MHC.OFFVIS ---
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 The patient describes her pain as sharp and severe in nature, 8/10. Her pain has gotten worse over the last 6 months in spite of continued non operative treatments. She has had cortisone injections in the past which gave her minimal relief. She has also done physical therapy which aggravated her pain. The patient reports difficulty lifting her left hand above shoulder height. She has tried Tylenol and anti-inflammatory medicines which gave her minimal relief. The patient has difficulty with her activities of daily living because of her pain and stiffness. Allergies No Known Allergies Allergy (Verified 12/03/23 13:17) Medication List - Last Reconciled 12/03/23 by Mohan Dodge MD docosahexaenoic acid-epa 1 cap PO DAILY estradiol (Yuvafem) 10 mcg vaginal 2XW ferrous sulfate 325 mg PO DAILY gabapentin 100 mg PO BID glyburide 5 mg PO BID insulin glargine (Lantus Solostar U-100 Insulin) 20 units subcut BEDTIME metformin 500 mg PO DAILY@0730 metformin 1,000 mg PO BEDTIME methenamine hippurate 1 g PO BID multivitamin 1 tab PO DAILY naproxen 500 mg PO BID PRN omeprazole 40 mg PO DAILY sennosides (senna) 8.6 mg PO BID PRN PFSH Medical History Acute arthritis Diabetes Proteinuria Anemia Edema of both lower extremities GERD (gastroesophageal reflux disease) Hyperlipidemia History of back pain Diabetic neuropathy Diabetes Surgical History Hx of section History of back surgery Hx of cholecystectomy Hx of bilateral cataract extraction Hx of colonoscopy with polypectomy Family History Paternal Aunt History of breast cancer Sister Ovarian cancer Brother Lung cancer Social History Household Members: Family and Children Are you a primary urgent care physician assistant to a significant other at home: No Do you presently have visiting nurse or other home services: No Alcohol intake: current Alcohol intake frequency: does not drink Patient Tobacco Use Status: Never used Tobacco Physical Exam Vital Signs: BMI result Body Mass Index 35.4 Const Other: Well-nourished well-developed very friendly female awake alert and oriented x3 in no acute distress Extrem Other: Bilateral upper extremity examination shows good capillary refill, no skin lesions noted, normal sensation light touch Left shoulder examination shows decreased active and passive compared to her right shoulder, 5/5 strength with supraspinatus testing, positive impingement signs, tenderness over her acromioclavicular joint, no instability Results Reviewed Results Reviewed: X-rays of the patient's left shoulder show severe acromioclavicular joint narrowing, a type 2 acromion, no acute bony abnormalities Assessment & Plan Assessment & Plan (1) Left shoulder pain: Code(s): M25.512 - Pain in left shoulder Plan Ms. Garcia presents with progressively worsening left shoulder pain and stiffness due to impingement syndrome, acromioclavicular joint arthritis and adhesive capsulitis. I had a lengthy discussion with the patient regarding the treatment options. At this point she has failed continued non operative treatments. The risks and benefits of left shoulder surgery were discussed at length with the patient. The patient wishes to proceed with surgery. Surgery will most likely involve left shoulder diagnostic arthroscopy with distal clavicle excision, acromioplasty, capsular release and manipulation under anesthesia. The patient will be scheduled for next available date. She will continue with her home stretching program to prevent worsening of her stiffness in the meantime. Feel free to call me at any time should questions regarding her orthopedic management arise. Thank you very much for asking me to see this very friendly patient. I spent 22 minutes in reviewing the patient's records and imaging studies, seeing the patient and documenting in the medical record. Orders: Orders XR shoulder LT min 2V Today M25.512 - Pain in left shoulder Coding Level of Care Code Est Pt Level 2 (99478) Diagnoses Left shoulder pain M25.512
== END 2023-12-03 13:32 | disposition home or self-care (01) ==
PROVIDERS: Visit Provider Orthopaedic Surgery
DX: M75.42 Impingement syndrome of left shoulder (principal); M19.012 Primary osteoarthritis, left shoulder
CPT/HCPCS: 99213

== ENCOUNTER 2024-04-21 12:01 | Outpatient (AMB) | payer OTHER, SELFPAY ==
--- NOTE | 2024-04-21 12:03 | MHC.OFFVIS ---
Vital Signs 04/21/24 12:07 Height 5 ft 3 in Weight 200 lb BMI 35.4 Intake Visit Reasons: O/V Left shoulder pain Intake Note: Rin is a 64 year old female who presents today with complaints of progressively worsening left shoulder pain and weakness. I first evaluated the patient on 12/03/2023 with complaints of progressively worsening left shoulder pain and weakness. The patient states that over the last 4 months and especially the last 6 weeks her symptoms have gotten worse. The patient has failed the last 6 weeks of conservative treatment. She has done physical therapy which aggravated her pain. She reports weakness when lifting her left hand above shoulder height. The patient states ?I can not even dress myself?. She has tried Tylenol and anti-inflammatory medicines which gave her minimal relief. She has had injections in the past which gave her no relief. Allergies No Known Allergies Allergy (Verified 04/21/24 12:11) PFSH Medical History Acute arthritis Diabetes Proteinuria Anemia Edema of both lower extremities GERD (gastroesophageal reflux disease) Hyperlipidemia History of back pain Diabetic neuropathy Diabetes Surgical History Hx of section History of back surgery Hx of cholecystectomy Hx of bilateral cataract extraction Hx of colonoscopy with polypectomy Family History Paternal Aunt History of breast cancer Sister Ovarian cancer Brother Lung cancer Social History Household Members: Family and Children Are you a primary inspector health care facilities to a significant other at home: No Do you presently have visiting nurse or other home services: No Alcohol intake: current Alcohol intake frequency: does not drink Patient Tobacco Use Status: Never used Tobacco Physical Exam Vital Signs: BMI result Body Mass Index 35.4 Const Other: Well-nourished well-developed very friendly female awake alert and oriented x3 in no acute distress Extrem Other: Bilateral upper extremity examination shows good capillary refill, no skin lesions noted, normal sensation light touch Left shoulder examination shows decreased range of motion when compared to her right shoulder, 4+ out of 5 strength with supraspinatus testing, positive impingement signs, tenderness over her acromioclavicular joint, no instability Results Reviewed Results Reviewed: X-rays of the patient's left shoulder show severe acromioclavicular joint narrowing, a type 2 acromion, no acute bony abnormalities Assessment & Plan Assessment & Plan (1) Impingement syndrome of left shoulder: Code(s): M75.42 - Impingement syndrome of left shoulder Category: Medical Plan Ms. Garcia presents with progressively worsening left shoulder pain and weakness due to impingement syndrome and most likely a full-thickness rotator cuff tear. The patient's symptoms have gotten progressively worse since I first met her on 12/03/2023 in spite of continued conservative treatment. I will order an MRI of her left shoulder to further evaluate the status of her rotator cuff tendons. I will call her by phone once the MRI results are available. She will continue with her range of motion exercises in the meantime to prevent stiffness. I spent 22 minutes in reviewing the patient's records and imaging studies, seeing the patient and documenting in the medical record. Orders: Orders MR shoulder LT wo con Today M75.42 - Impingement syndrome of left shoulder Coding Level of Care Code Est Pt Level 3 (03377) Diagnoses Impingement syndrome of left shoulder M75.42
[2024-04-21 12:07] VITALS: BMI 35.4
== END 2024-04-21 12:16 | disposition home or self-care (01) ==
PROVIDERS: Visit Provider Orthopaedic Surgery
DX: M75.42 Impingement syndrome of left shoulder (principal)
CPT/HCPCS: 99213

== ENCOUNTER → 2024-04-21 12:01 | Outpatient (BNVA) | payer OTHER, SELFPAY | PROVIDERS: Visit Provider Orthopaedic Surgery | DX: M75.42 Impingement syndrome of left shoulder (principal) | CPT/HCPCS: 99212 ==

== ENCOUNTER 2024-06-27 16:14 | Outpatient (REF) | payer OTHER, SELFPAY ==
[2024-06-27 17:39] LABS: Appearance Urine Turbid; Color Urine Yellow; Glucose Urine UA Negative (Negative); Leukocyte Esterase Urine Trace (Negative); Nitrite Urine Negative (Negative); PH 5.5 (5.0-9.0); Specific Gravity - Urine >= 1.030 (1.005-1.025); UMIC TRIGGER UACC YES; Urine Blood Negative (Negative); Urine Ketones Trace mg/dL (Negative); Urine Protein Trace mg/dL (Neg-Trace)
[2024-06-27 18:28] LABS: Bacteria Urine None Seen (None Seen); Calcium Oxalate Crystals Urine Present; Hyaline Casts Urine 0-2 /LPF (0-2); RBC Urine 0-2 /HPF (0-2); WBC Urine 0-5 /HPF (0-5)
[2024-06-27 18:38] LABS: Influenza A PCR NEGATIVE (Negative); Influenza B PCR NEGATIVE (Negative); Resp Syncy Virus RNA Qual PCR NEGATIVE (Negative); SARS COV2 PCR INHOUSE NEGATIVE (Negative)
== END 2024-06-27 16:15 | disposition home or self-care (01) ==
LOC: HO.CHCLNP 16:14
PROVIDERS: Visit Provider Family Medicine
DX: J06.9 Acute upper respiratory infection, unspecified (principal); R30.0 Dysuria
CPT/HCPCS: 0241U; 81001

== ENCOUNTER 2024-10-14 10:48 | Outpatient (AMB) | payer MEDICAID, SELFPAY ==
--- NOTE | 2024-10-14 10:52 | MHC.OFFVIS ---
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 She is doing well with no concerns. She reports recent bladder infection, last dose yesterday. Symptoms often an odor and chills. Seen by Urology in the past, do not want a bladder biopsy. Currently not sexually active. Denies any vaginal dryness or irritation. Attempting to eat a healthy diet with calcium and vitamin D, not active due to her disabilities, difficulty walking due to back and dressing herself currently with a shoulder injury. Last pap smear; 2022. Last mammogram; 2021. Overdue, she reports unable to get into the machine due to her frozen shoulder and pain. Colonoscopy is UTD. Denies any family history of breast, ovarian or colon cancer. [facility] Medical History Acute arthritis Diabetes Proteinuria Anemia Edema of both lower extremities GERD (gastroesophageal reflux disease) Hyperlipidemia History of back pain Diabetic neuropathy Diabetes Surgical History Hx of section History of back surgery Hx of cholecystectomy Hx of bilateral cataract extraction Hx of colonoscopy with polypectomy Family History Paternal Aunt History of breast cancer Sister Ovarian cancer Brother Lung cancer Social History Household Members: Family and Children Are you a primary lawn care worker to a significant other at home: No Do you presently have visiting nurse or other home services: No Alcohol intake: current Alcohol intake frequency: does not drink Patient Tobacco Use Status: Never used Tobacco Female Reproductive History Menstrual Total pregnancies: 4 Full term: 3 Ab spontaneous: 1 Date of last pap smear: 09/01/23 (negative pap smear, negative hpv ) Date of Mammogram: 05/22/22 (bi rad 1) Review of Systems Const All systems reviewed & are unremarkable except as noted in HPI and below Reports as per HPI Eyes Reports no additional complaints ENT Reports no additional complaints Card Reports no additional complaints Resp Reports no additional complaints GI Reports as per HPI and Reports no additional complaints Reports as per HPI Musc Reports no additional complaints Skin/Breast Reports as per HPI Neuro Reports no additional complaints Psych Reports no additional complaints Endo Reports no additional complaints Tristen/Lymph Reports no additional complaints Aller/Immun Reports no additional complaints Physical Exam Vital Signs: Last Vital Signs BP 108/54 L 10/14/24 11:06 BMI result Body Mass Index 35.4 Const General: cooperative, healthy appearing, no acute distress, well developed and alert Orientation/consciousness: patient oriented x3 HEENT Head: Yes normal to inspection Eyes General: appearance normal, both eyes and all related structures Neck Neck: Yes normal visual inspection Thyroid: Thyroid normal Chest Chest palpation & inspection: normal inspection of the chest and other (no puckering, dimpling, peau de orange, retraction, discharge, masses) Breast/axilla inspection: normal inspection of the breasts Breast/axilla palpation: normal palpation of the breasts Resp Effort & Inspection: normal respiratory effort GI Inspection: Yes normal to inspection, Yes obesity (Large rounded abdomen) and Yes scar Palpation (GI): Soft to palpation Rectal Exam - Female: deferred General: Yes bladder normal to palpation External Female Exam: normal external appearance and normal appearance of the urethra Speculum Exam - Vagina: normal appearance of the vagina, normal palpation, normal vaginal discharge and vagina atrophic Speculum Exam - Cervix: normal appearance of the cervix and normal palpation Bimanual exam- vagina & uterus: normal bimanual exam, normal palpation, bladder normal to palpation, normal palpation and non-tender Bimanual Exam- Adnexa, other: no masses (Limited exam due to body habitus) Skin General skin exam: no rashes or lesions noted Rashes: no rashes Neuro General: patient oriented x3 Cognition (Neuro): normal cognition Extrem General: Yes normal to inspection Psych Attitude: cooperative Thought process: Normal thought process present Assessment & Plan Assessment & Plan (1) Encounter for well woman exam with routine gynecological exam: Code(s): Z01.419 - Encounter for gynecological examination (general) (routine) without abnormal findings Category: Medical Plan Discussed: Current recommendations for pap smears per ASCCP guidelines. Breast awareness, periodic self breast exams and yearly mammogram. Mammogram ordered patient accepts, and agrees to have it done after her surgery. Maintain a healthy lifestyle, well balanced diet including Calcium 1,200 mg and Vitamin D 600 IU daily. Contact the office with any postmenopausal bleeding. Patient verbalizes understanding and agrees to the plan of care. She was given opportunity to ask questions and all questions were answered to the best of my ability. RTO in 1 year for annual private branch exchange repairer exam. This note is constructed using voice recognition software. While every effort has been made to ensure accuracy, color card maker errors may have been included. Orders: Orders MM tomosynthesis screening BI Today Z12.31 - Encounter for screening mammogram for malignant neoplasm of breast Coding Level of Care Code Est Pt Prev Care 40-64y(95925) Diagnoses Encounter for well woman exam with routine gynecological exam Z01.419
[2024-10-14 11:06] VITALS: BP 108/54; BMI 35.4
== END 2024-10-14 13:10 | disposition home or self-care (01) ==
LOC: HO.HWS 10:48
PROVIDERS: Visit Provider Advanced Practice Midwife
DX: Z01.419 Encounter for gynecological examination (general) (routine) without abnormal findings (principal)
CPT/HCPCS: 99396

== ENCOUNTER → 2024-10-14 10:48 | Outpatient (BNVA) | payer MEDICAID, SELFPAY | PROVIDERS: Visit Provider Advanced Practice Midwife | DX: Z01.419 Encounter for gynecological examination (general) (routine) without abnormal findings (principal) | CPT/HCPCS: 99396 ==

== ENCOUNTER 2024-11-09 15:03 | Outpatient (REF) | payer MEDICAID, SELFPAY ==
[2024-11-10 11:55] LABS: Bacterial Vaginosis PCR NEGATIVE (Negative); Candida Group PCR NOT DETECTED (Not Detect); Candida glab krusei PCR NOT DETECTED (Not Detect); Trichomonas vaginalis PCR NOT DETECTED (Not Detect)
== END 2024-11-09 15:04 | disposition home or self-care (01) ==
LOC: HO.CHCLNP 15:03
PROVIDERS: Visit Provider Family Medicine
DX: N76.0 Acute vaginitis (principal)
CPT/HCPCS: 81515

== ENCOUNTER 2025-06-23 17:19 | Outpatient (REF) | payer MEDICAID, SELFPAY | END 2025-06-23 17:20 | disposition home or self-care (01) | LOC: HO.HHCLNP 17:19 | PROVIDERS: Visit Provider Family Medicine | DX: E11.9 Type 2 diabetes mellitus without complications (principal); R39.9 Unspecified symptoms and signs involving the genitourinary system; Z79.4 Long term (current) use of insulin | CPT/HCPCS: 87086; 87088; 87186 ==

== ENCOUNTER 2025-08-18 12:44 | Outpatient (REF) | payer MEDICAID, SELFPAY ==
--- OUTSIDE RECORDS SUMMARY | 2025-08-18 10:30 | XMS_ITS | Encounter Summary ---
Author Organization [employer] Address [address] [place] [address] [address] [place] [address] Care Team Providers Care Viticulturist Name Role Phone Stephenie Elliott MD Primary Care Provider [phone] Reason for Referral * Imaging (Routine) - Authorized Specialty Diagnoses / Procedures Referred By Contac t Referred To Contact Radiology Diagnoses Type 2 diabetes mellitus without complication, with long-term current use of insulin (HCC) Procedures BI Mammogram Screening Tomosynthesis Bilateral Stephenie Elliott MD [address] [place] [address] Phone: tel: fax: [address] Phone: tel: fax: Referral ID Status Reason Start Date Expiration Date V isits Requested Visits Authorized [id number] Authorized 08/18/2025 08/18/2026 1 1 Reason for Visit * Reason Comments Follow-up Encounter Details Date Type Department Care Team ([facility] st Contact Info) Description 08/18/2025 10:30 AM EDT Office Visit [facility] [address] [place] [address] Stephenie Elliott MD [address] [place] [address] Type 2 diabetes mellitus without complication, with long-term current use of insulin (HCC) (Primary Dx); Dietary counseling; Exercise counseling; Class 2 severe obesity with serious comorbidity and body mass index (BMI) of 37.0 to 37.9 in adult, unspecified obesity type; Type 2 diabetes mellitus with other circulatory complication, with long-term current use of insulin (HCC); Recurrent UTI; Onychomycosis; Recurrent UTI; Type 2 diabetes mellitus without complication, with long-term current use of insulin (HCC); Chronic idiopathic constipation; Encounter for vaccination; Encounter for immunization Social History Tobacco Use Types Packs/Day Years Used Date Smoking Tobacco: Never Passive Smoke Exposure: Never Smokeless Tobacco: Never Alcohol Use Standard Drinks/Week Comments Never 0 (1 standard drink = 0.6 oz pur e alcohol) Depression Answer Date Recorded Patient Health Questionnaire-9 Score 2 11/05/2023 Patient Health Questionnaire-9 Score 2 11/05/2023 Last PHQ-9: Questionnaire Data Not on file 0 11/05/2023 Housing Stability Answer Date Recorded What is your housing situation today? I have jj foreman 08/18/[address] you li ve. Do you have problems with any of the following? None of the above 08/18/2025 Food Insecurity Answer Date Recorded Within the past 12 months, y ou worried that your food would run out before you got money to buy more: Never True 08/18/2025 Within the past 12 months,th e food you bought just didn't last and you didn't have enough money to get more: Never True Transportation Answer Date Recorded In the past 12 months, has l ack of transportation kept you from medical appts, meetings, work or from getting things needed for daily living? No 08/18/2025 Utilities Answer Date Recorded In the past 12 months, has t he [employer], gas, oil or water [employer] threatened to shut off services in your home? No 08/18/2025 Depression Answer Date Recorded Patient Health Questionnaire-2 Score 2 11/05/2023 Internet Access Answer Date Recorded Internet Access Q1 Yes 08/18/2025 Internet Access Q2 Not on file 08/18/2025 Comments Unknown Sex and Gender Information Value Date Recorded Sex Assigned at Female 09/01/2022 10:36 AM EDT Legal Sex Female 10:36 AM EDT Gender Identity Female 09/01/2022 10:36 AM EDT Sexual Orientation Straight 09/01/2022 10 :36 AM EDT documented as of this encounter Last Filed Vital Signs Vital Sign Reading Time Taken Comments Blood Pressure 126/65 08/18/2025 10:40 AM EDT Pulse 82 08/18/2025 10:40 AM EDT Temperature 36.4 C (97.6 F) 08/18/2025 10:40 AM EDT Respiratory Rate 20 08/18/2025 10:40 AM EDT Oxygen Saturation 97% 08/18/2025 10:40 AM EDT Inhaled Oxygen Concentration - - Weight 90.1 kg (198 lb 9.6 oz) 08/18/2025 10:40 AM EDT Height 154.9 cm (5' 1 ) 08/18/2025 10:40 AM EDT Body Mass Index 37.53 08/18/2025 10:40 AM EDT documented in this encounter Progress Notes * Stephenie Elliott MD - 08/18/2025 10:30 AM EDT Subjective Patient ID: Rin Garcia is a 65 y.o. female who presents for Follow-up. History of Present Illness Rin Garcia is a diabetic patient presenting for follow-up of urinary symptoms and diabetes management. She was previously seen by Dr. Tran for what was initially thought to be a urinary tract infection, with plans for urology referral. However, subsequent urine culture revealed E. coli, and she was started on antibiotic treatment. The patient reports that she was instructed to stop the initial medication and was given a different antibiotic, which did not work that much, and she continues tohave persistent urinary symptoms. The patient describes ongoing urinary frequency and urgency with incontinence, stating Once I needto pee, by the time I try to get up, it falls out. Then I will carry it like that, go to the bathroom, finish the rest in the bathroom, then change my pants. She also reports concentrated urine withodor, which she attributes to frequent urination. She denies any burning sensation or other urinarysymptoms. The patient was last seen by a specialist for these symptoms 2 years ago in January in [place] and received medication at that time. Regarding her diabetes management, the patient reports improvement in her A1C from 6.7 to 6.3. She has increased her Lantus insulin dose from 20 units to 30 units and continues taking glyburide with meals. She denies experiencing any episodes of low blood sugar. The patient does not report any issues with her current diabetes medications. Medical History - Diabetes mellitus with A1c previously 6.7, now 6.3 - Urinary tract infection, seen by Dr. Tran, culture negative for UTI but positive for E. coli - Urinary symptoms evaluated by urology specialist in [place] approximately 2 years ago in January - Mild anemia noted on recent laboratory studies - Elevated cholesterol and triglycerides on recent laboratory studies Medications and Supplements - Lantus 30 units - Increased from 20 units - Glyburide - Takes when eating - Metformin - Vitamin C - Senna - For constipation - Nadolol - Antibiotic for urinary infection - Discontinued after culture showed it was not a urinary tract infection - Different antibiotic for urinary symptoms - Did not work well. Still having symptoms Review of Systems Gastrointestinal: Positive for constipation. Genitourinary: Positive for urinary frequency, urinary incontinence, and urinary odor. Review of Systems Genitourinary: Positive for frequency and urgency. Musculoskeletal: Positive for back pain. Objective Visit Vitals BP 126/65 Pulse 82 Temp 97.6 ??F (36.4 ??C) (Oral) Resp 20 Ht 5' 1 (1.549 m) Wt 198 lb 9.6 oz (90.1 kg) SpO2 97% BMI 37.53 kg/m?? Smoking Status Never BSA 1.97 m?? Physical Exam Constitutional: General: She is not in acute distress. Appearance: She is obese. She is not ill-appearing. HENT: Head: Normocephalic and atraumatic. Nose: Nose normal. No congestion. Mouth/Throat: Mouth: Mucous membranes are moist. Comments: Has braces Eyes: Extraocular Movements: Extraocular movements intact. Pupils: Pupils are equal, round, and reactive to light. Cardiovascular: Rate and Rhythm: Normal rate and regular rhythm. Pulses: Dorsalis pedis pulses are 2+ on the right side and 2+ on the left side. Posterior tibial pulses are 2+ on the right side and 2+ on the left side. Heart sounds: Normal heart sounds. No murmur heard. Pulmonary: Effort: Pulmonary effort is normal. No respiratory distress. Breath sounds: Normal breath sounds. Abdominal: General: Bowel sounds are normal. There is no distension. Palpations: Abdomen is soft. There is no mass. Tenderness: There is no abdominal tenderness. There is no guarding. Musculoskeletal: General: Normal range of motion. Cervical back: Normal range of motion. Right lower leg: No edema. Left lower leg: No edema. Right foot: Normal range of motion. No deformity, bunion, Charcot foot or prominent metatarsal heads. Left foot: Normal range of motion. No deformity, bunion, Charcot foot or prominent metatarsal heads. Feet: Right foot: Protective Sensation: 7 sites tested. 7 sites sensed. Skin integrity: Dry skin present. No ulcer, blister, skin breakdown, erythema, warmth or callus. Toenail Condition: Right toenails are abnormally thick. Left foot: Protective Sensation: 7 sites tested. 7 sites sensed. Skin integrity: Dry skin present. No ulcer, blister, skin breakdown, erythema, warmth or callus. Toenail Condition: Left toenails are abnormally thick. Skin: Capillary Refill: Capillary refill takes less than 2 seconds. Findings: No rash. Neurological: General: No focal deficit present. Mental Status: She is alert and oriented to person, place, and time. Psychiatric: Mood and Affect: Mood normal. Behavior: Behavior normal. Assessment/Plan Problem List Items Addressed This Visit Type 2 diabetes mellitus with other circulatory complication, with long-term current use of insulin(HCC) - Primary Relevant Medications insulin glargine (Lantus SoloStar) 100 UNIT/ML pen metFORMIN (Glucophage) 1000 MG tablet Recurrent UTI Relevant Medications Ascorbic Acid (vitamin C) 250 MG tablet Other Relevant Orders Urinalysis, Complete, with Reflex to Culture Onychomycosis Other Visit Diagnoses Dietary counseling Relevant Medications insulin glargine (Lantus SoloStar) 100 UNIT/ML pen metFORMIN (Glucophage) 1000 MG tablet Exercise counseling Relevant Medications insulin glargine (Lantus SoloStar) 100 UNIT/ML pen metFORMIN (Glucophage) 1000 MG tablet Class 2 severe obesity with serious comorbidity and body mass index (BMI) of 37.0 to 37.9 in adult,unspecified obesity type Relevant Medications insulin glargine (Lantus SoloStar) 100 UNIT/ML pen metFORMIN (Glucophage) 1000 MG tablet Type 2 diabetes mellitus without complication, with long-term current use of insulin (HCC) Stable Relevant Medications insulin glargine (Lantus SoloStar) 100 UNIT/ML pen metFORMIN (Glucophage) 1000 MG tablet Other Relevant Orders POCT Glucose (Completed) POCT Hgb A1c (Completed) BI Mammogram Screening Tomosynthesis Bilateral Chronic idiopathic constipation Relevant Medications cephalexin (Keflex) 500 MG capsule senna (Senokot) 8.6 MG tablet Future Appointments Date Time Provider Department Center 09/27/2025 10:45 AM Alayna Brannon CNP [facility] Rin Garcia presents with persistent urinary symptoms following treatment for suspected UTI, alongwith diabetes management and routine preventive care. Recurrent urinary symptoms Assessment: Patient continues to experience urinary frequency, urgency with incontinence, and urinary odor despite previous antibiotic treatment. Initial culture was negative for UTI, and previous E.coli treatment was ineffective. Symptoms include inability to hold urine when urgency occurs, requiring frequent clothing changes. Patient attributes concentrated urine and odor to frequent urination. Previous urology evaluation was 2 years ago in January at [place]. Plan: - Recheck urine culture to assess for persistent bacterial infection - Start Keflex twice daily for 10 days Type 2 diabetes mellitus Assessment: Diabetes control has improved with A1c decreasing from 6.7 to 6.3. Current glucose is 170.4 mg/dL. Patient increased Lantus dose from 20 to 30 units without experiencing hypoglycemic episodes. Also taking glyburide with meals. Recent labs from 2 months ago showed slightly elevated glucose but normal liver function. Plan: - Continue Lantus 30 units (send prescription to pharmacy) - Continue glyburide with meals - Annual diabetic foot examination completed today - defer to PCP Onychomycosis Assessment: Thickened toenails consistent with fungal infection, likely related to diabetes predisposing to fungal overgrowth. Recent liver function tests were normal, making antifungal medication safe to prescribe. Plan: - Offer antifungal medication given normal liver function - Patient expressed interest in trying natural remedies first (apple cider vinegar with baking soda, tea tree oil) - Tea tree oil recommended as most effective natural option Dyslipidemia Assessment: Recent lipid panel showed triglycerides 170 mg/dL and LDL 105 mg/dL, which are elevatedcompared to previous year. Patient was fasting during lab draw. Elevated cholesterol may be relatedto previously higher glucose levels. Plan: - Monitor cholesterol levels as glucose control improves - Defer intervention to new primary care provider Preventive care Assessment: Patient is due for routine mammography screening. Blood pressure is well controlled. Vaccinations are due. Plan: - Order mammography (patient receives care at [place]) - Administer due vaccinations - Established care with new PCP Brock Brannon on September 27 at 10:45 AM documented in this encounter Miscellaneous Notes * Addendum Note - Ryland Velazquez MA - 08/18/2025 10:30 AM EDTAddended by: RYLAND VELAZQUEZ on: 08/18/2025 11:27 AM Modules accepted: Orders * Addendum Note - Ryland Velazquez MA - 08/18/2025 10:30 AM EDTAddended by: RYLAND VELAZQUEZ on: 08/18/2025 11:50 AM Modules accepted: Orders documented in this encounter Plan of Treatment Upcoming Encounters Date Type Department Care Team (Late st Contact Info) Description 09/27/2025 10:45 AM EST Office Visit [facility] [address] [place] [address] Alayna Brannon, MAAME [address] [place] [address] Scheduled Orders Name Type Priority Associated Diagnoses Orde r Schedule BI Mammogram Screening Tomosynthesis Bilateral Imaging Routine Type 2 diabetes mellitus without complication, with long-term current use of insulin (HCC) Expected: 08/18/2025, Expires: 10/18/2026 documented as of this encounter Procedures Procedure Name Priority Date/Time Associated Diagnosis Comments POCT URINALYSIS DIPSTICK Routine 08/18/2025 11:51 AM EDT Type 2 diabetes mellitus without complication, with long-term current use of insulin (HCC) POCT GLYCATED HEMOGLOBIN, TOTAL Routine 08/18/2025 10:55 AM EDT Type 2 diabetes mellitus without complication, with long-term current use of insulin (HCC) POCT GLUCOSE Routine 08/18/2025 10:55 AM EDT Type 2 diabetes mellitus without complication, with long-term current use of insulin ([facility]) HP LINK DIABETIC FOOT EXAM Routine 08/18/2025 URINALYSIS, COMPLETE, WITH REFLEX TO CULTURE Routine 08/18/2025 12:00 AM EDT Recurrent UTI documented in this encounter Results * (ABNORMAL) POCT Urinalysis (08/18/2025 11:51 AM EDT) Color, UA Yellow Clarity, UA Clear Glucose, UA 2+ 125++ Bilirubin, UA Negative Ketones, UA Negative Spec Grav, UA 1.020 Blood, UA Negative Negative, None Detected pH, UA 7.0 Protein, UA Negative Urobilinogen, UA 0.2 Leukocytes, UA Trace Negative, Rare, Trace Nitrite, UA Positive(A) Negative, None Detected Appearance, UA clear QC Media Lot # [id number] Urine (Urine, Random) 08/18/2025 11:51 AM EDT Stephenie Elliott MD POINT OF CARE TEST ENTER/EDIT ORDERABLES Final Result * (ABNORMAL) POCT Hgb A1c (08/18/2025 10:55 AM EDT) Hemoglobin A1C 6.3(A) 4.0 - 5.7 % QC Media Lot # [id number] Lot# Expiration Date Blood 08/18/2025 10:5 5 AM EDT Stephenie Elliott MD POINT OF CARE TEST ENTER/EDIT ORDERABLES Final Result * POCT Glucose (08/18/2025 10:55 AM EDT) Glucose Blood, POC [id number] - 200 mg/dL QC Media Lot # [id number] Lot# Expiration Date Blood Capillary blood specimen / Unknown 08/18/2025 10:55 AM EDT us Stephenie Elliott MD POINT OF CARE TEST ENTER/EDIT ORDERABLES Final Result * HP Diabetic Foot Exam (08/18/2025) Stephenie Elliott MD HEALTH MAINTENANCE Final Resu lt * (ABNORMAL) Urinalysis, Complete, with Reflex to Culture (08/18/2025 12:00 AM EDT) Color Urine Dark Yellow [facility] Appearance Urine Cloudy [facility] PH 7.5 5.0 - 9.0 [facility] Glucose Urine UA 100(A) Negative mg/dL [facility] Urine Blood Negative Negative [facility] Specific [place] - Urine 1.020 1.005 - 1.025 [facility] Urine Protein Negative Neg-Trace mg/dL [facility] Urine Ketones Negative Negative mg/dL [facility] Nitrite Urine Positive(A) Negative [facility] Leukocyte Esterase Urine Trace(A) Negative [facility] RBC Urine 0-2 0 - 2 /HPF [facility] Urine WBC 11-20(A) 0 - 5 /HPF [facility] Urine Squamous Epithelial Cell 0-2 0 - 2 /HPF [facility] Urine Bacteria 4+ None Seen [facility] Hyaline Casts, Urine 0-2 0 - 2 /LPF [facility] Urine 08/18/2025 08/18/2025 Narrative [facility] - 08/18/2025 2:54 PM EDT [id number], Clean Catch Stephenie Elliott MD LAB URINE ORDERABLES Final Re sult [facility] [address] [place] [address] [phone] documented in this encounter Visit Diagnoses Diagnosis Type 2 diabetes mellitus without complication, with long-term current use of insulin (HCC)- Primary Dietary counseling Dietary surveillance and counseling Exercise counseling Class 2 severe obesity with serious comorbidity and body mass index (BMI) of 37.0 to 37.9 in adult, unspecified obesity type Type 2 diabetes mellitus with other circulatory complication, with long-term current use of insulin (HCC) Recurrent UTI Urinary tract infection, site not specified Onychomycosis Dermatophytosis of nail Chronic idiopathic constipation Unspecified constipation Encounter for vaccination Encounter for immunization documented in this encounter Additional Health Concerns Assessment Noted Time PHQ-9 Depression Total Score: 2 11/05/19 24 11:46 AM EST documented as of this encounter Care Teams Viticulturist Relationship Specialty Start Date End Date Stephenie Elliott MD [address] [place] [id number] PCP - General Family Medicine 08/07/23 documented as of this encounter
[2025-08-18 14:40] LABS: Appearance Urine Cloudy; Glucose Urine UA 100 mg/dL (Negative); PH 7.5 (5.0-9.0); Specific Gravity - Urine 1.020 (1.005-1.025); UMIC TRIGGER UACC YES
[2025-08-18 14:53] LABS: UACC Culture Trigger YES
--- OUTSIDE RECORDS SUMMARY | 2025-08-18 15:07 | XMS_ITS ---
Author Organization [facility] Care Team Providers Care Cut Pressman Name Role Phone Alyssa Paula Unavailable Unavailable Arlene Dalton Unavailable Unavailable Beth Bravo Unavailable Unavailable Dolores Moralez Unavailable Unavailable Darlene Earl Unavailable Unavailable Care Team Name Role Address Phone Organization Dates Beth Bravo PCP [address], [address], [facility] (Office): [facility] 05/24/2018 - 06/01/2018 Alyssa Paula [address] [place] [address], [address], [facility] (Office): [facility] 05/24/2018 - 06/01/2018 Arlene Dalton [address], [address], [facility] (Office): [facility] 05/24/2018 - 06/01/2018 Dolores Moralez [address] [place] [address], [address], [facility] (Office): [facility] 05/24/2018 - 06/01/2018 Darlene Earl Claudia Fulton [facility] [address], [place], [address], [place] (Office): [facility] 05/24/2018 - 06/01/2018 Mental Status Section Date Assessment Total Score Description 06/01/2018 BIMS 15 cognitively int act CAM 0 No delirium ind icated PHQ-9 00 Insurance Providers Problems Problem # Description Date of onset Resolved Date Code CodeSystem Concern Status 1 DIFFICULTY IN WALKING, NOT ELSEWHERE CLASSIFIED 05/24/[address] active 2 ENCOUNTER FOR OTHER SPECIFIED SURGICAL AFTERCARE 05/24/[address] active 3 LOW BACK PAIN 05/24/[address] act lesley 4 OTHER INTERVERTEBRAL DISC DEGENERATION, LUMBAR REGION 05/24/[address] active 5 RADICULOPATHY, LUMBAR REGION 05/24/[address] active 6 TYPE 2 DIABETES MELLITUS WITHOUT COMPLICATIONS 05/24/[address] active Reason for Referral No Reasons for Referral Entered Social History Social History Observation Description Start Date End Date Code Code System Current Smoking Status Tobacco smoking consumption unknown 662528281 SNOMED CT Sex Assigned At Female 1960 54003-0 [facility] Gender Identity Sexual Orientation Vital Signs Code Code System Vitals Name Values and Units Timing Information 2339-0 [facility] Blood Sugar Iwawg=456.0 Units=mg/dL 06/01/2018 8462-4 [facility] Blood Pressure-Diastolic Value=72 Un its=mmHg 05/31/2018 8480-6 [facility] Blood Pressure-Systolic Kjxtq=249 Un its=mmHg 05/31/2018 8310-5 [facility] Body Temperature Value=98.6 Units= F 05/31/2018 8867-4 [facility] Heart rate Value=71.0 Units=/min 74148-9 [facility] O2 % BldC Oximetry Value=96.0 Units= % 05/31/2018 8302-2 [facility] Height Value=62.0 Units=Inches 05/27/2018 10230-1 [facility] Weight Puzbe=045.2 Units=Lbs 9279-1 [facility] Respiratory Rate Value=18.0 Units=/m in 05/24/2018 47930-3 [facility] Pain Level Value=10.0 05/24/2018
--- OUTSIDE RECORDS SUMMARY | 2025-08-18 15:07 | XMS_ITS | Encounter Summary ---
Author Organization [employer] Address 75 [facility] 7 [place] [address] Care Team Providers Care Timber Bucker Name Role Phone Stephenie Elliott MD Primary Care Provider [phone] Reason for Visit * Reason Onset Date Comments Chart prep 08/17/2025 Encounter Details Date Type Department Care Team ([facility] Contact Info) Description 08/17/2025 Telephone [facility] MED & PEDS [address] [place] [address] Stephenie Elliott MD 505 [place] [address] Chart prep Social History Tobacco Use Types Packs/Day Years [...] the past 12 months, has t he electric, gas, oil or water company threatened to shut off services in your [...] AM EDT documented as of this encounter Miscellaneous Notes * Telephone Encounter - Leonila Gregory MA - 08/17/2025 2:28 PM EDT Chart Prep Labs: not applicable Images: not done Referrals: not applicable Vaccines due: Covid, Flu, RSV, and Zoster Screenings: mammogram, eye exam, and foot exam Overdue care gaps: SBIRT, SDOH, PHQ-9, Oral health screening, and Tobacco documented in this encounter Plan of Treatment Upcoming Encounters Date Type Department Care Team ([facility] st Contact Info) Description 09/27/2025 10:45 AM EST Office Visit [facility] MED & PEDS [address] [place] [address] Alayna Brannon CNP 505 [place] [address] documented as of this encounter Visit Diagnoses Not on filedocumented in this encounter Additional Health Concerns Assessment Noted Time PHQ-9 Depression Total Score: 2 11/05/19 24 11:46 AM EST documented as of this encounter Care Teams Timber Bucker Relationship Specialty Start Date End Date Stephenie Elliott MD [address] [place] [address] PCP - General Family Medicine 08/07/23 documented as of this encounter
--- OUTSIDE RECORDS SUMMARY | 2025-08-18 15:07 | XMS_ITS | Encounter Summary ---
Author Organization [employer] Address 75 [facility] 7t [place] [address] Care Team Providers Care Warper Creeler Name Role Phone Stephenie Elliott MD Primary Care Provider [phone] Reason for Visit * Reason Comments Med Refill Encounter Details Date Type Department Care Team ([facility] st Contact Info) Description 07/20/2025 Refill [facility] [address] [place] [id number] Tran MD [address] [place] [address] Acute pain of right knee Social History Tobacco Use Types Packs/Day Years [...] housing situation today? I have jj foreman 08/18/[address] you li ve. Do you have problems with any of the following? None of the above 08/18/2023 Food Insecurity Answer Date Recorded Within the past 12 months, y ou worried that your food would run out before you got money to buy more: Never True 08/18/2023 Within the past 12 months,th e food you bought just didn't last and you didn't have enough money to get more: Never True Transportation Answer Date Recorded In the past 12 months, has l ack of transportation kept you from medical appts, meetings, work or from getting things needed for daily living? No 08/18/2023 Utilities Answer Date Recorded In the past 12 months, has t he electric, gas, oil or water company threatened to shut off services in your home? No 08/18/2023 Depression Answer Date Recorded Patient Health Questionnaire-2 Score 2 11/05/2023 Comments Unknown Sex and Gender Information Value Date Recorded Sex Assigned at Female 09/01/2022 10:36 AM EDT Legal Sex Female 10:36 AM EDT Gender Identity Female 09/01/2022 10:36 AM EDT Sexual Orientation Straight 09/01/2022 10 :36 AM EDT documented as of this encounter Plan of Treatment Upcoming Encounters Date Type Department Care Team (Late st Contact Info) Description 09/27/2025 10:45 AM EST Office Visit [facility] MED & PEDS 505 [place] [address] Alayna Brannon CNP 505 [place] [address] documented as of this encounter Visit Diagnoses Diagnosis Acute pain of right knee documented in this encounter Additional Health Concerns Assessment Noted Time PHQ-9 Depression Total Score: 2 11/05/19 24 11:46 AM EST documented as of this encounter Care Teams Warper Creeler Relationship Specialty Start Date End Date Stephenie Elliott MD [address] [place] [address] PCP - General Family Medicine 08/07/23 documented as of this encounter
--- OUTSIDE RECORDS SUMMARY | 2025-08-18 15:08 | XMS_ITS | Encounter Summary ---
Author Organization [employer] Address [address] [place] [address] [place] [address] Care Team Providers Care Electronic Installer Name Role Phone Stephenie Elliott MD Primary Care Provider [phone] Reason for Visit * Reason Onset Date Comments Results 07/24/2023 Encounter Details Date Type Department Care Team ([facility] Contact Info) Description 07/24/2023 Telephone [facility] MED & PEDS [address] [place] [address] Arun Mack MD 505 [place] [address] Results Social History Tobacco Use Types Packs/Day Years Used Date Smoking Tobacco: Never Passive Smoke Exposure: Never Smokeless Tobacco: Never Alcohol Use Standard Drinks/Week Comments Never 0 (1 standard drink = 0.6 oz pur e alcohol) Depression Answer Date Recorded Patient Health Questionnaire-9 Score 18 04/21/2023 Depression Answer Date Recorded Patient Health Questionnaire-2 Score 5 04/21/2023 Comments Unknown Sex and Gender Information Value Date Recorded Sex Assigned at Female 09/01/2022 10:36 AM EDT Legal Sex Female 10:36 AM EDT Gender Identity Female 09/01/2022 10:36 AM EDT Sexual Orientation Straight 09/01/2022 10 :36 AM EDT documented as of this encounter Miscellaneous Notes * Telephone Encounter - Marco Osorio RN - 07/24/2023 10:49 AM EDT FYI: Preliminary result. Final Ucx result not yet available. * Telephone Encounter - Mariam Roper - 07/24/2023 10:41 AM EDT Tc from patient requesting urine test results done on 07/23/23 at [facility] labs. documented in this encounter Plan of Treatment Upcoming Encounters Date Type Department Care Team (Late st Contact Info) Description 09/27/2025 10:45 AM EST Office Visit [facility] MED & PEDS [address] [place] [address] Alayna Brannon CNP [address] [place] [address] documented as of this encounter Visit Diagnoses Not on filedocumented in this encounter Additional Health Concerns Assessment Noted Time PHQ-9 Depression Total Score: 18 023 11:55 AM EDT documented as of this encounter Care Teams Electronic Installer Relationship Specialty Start Date End Date Stephenie Elliott MD [address] [place] [address] PCP - General Family Medicine 08/07/23 documented as of this encounter
--- OUTSIDE RECORDS SUMMARY | 2025-08-18 15:08 | XMS_ITS | Encounter Summary ---
Author Organization [employer] Address 75 [facility] 7 [place] [address] Care Team Providers Care Senior Qualitative Researcher Name Role Phone Stephenie Elliott MD Primary Care Provider [phone] Reason for Visit * Reason Comments Med Refill Encounter Details Date Type Department Care Team ([facility] st Contact Info) Description 06/12/[address] [facility] CHC MED & PEDS [address] [place] [address] McmahonArun Diaz MD [address] [place] [address] Type 2 diabetes mellitus without complication, with long-term current use of insulin ([facility]) Social History Tobacco Use Types Packs/Day Years [...] Description 09/27/2025 10:45 AM EST Office Visit [facility] MED & PEDS [address] [place] [address] Alayna Brannon, PERSONAL INJURY LEGAL ASSISTANT 505 [place] [address] documented as of this encounter Visit Diagnoses Diagnosis Type 2 diabetes mellitus without complication, with long-term current use of insulin (HCC) documented in this encounter Additional Health Concerns Assessment Noted Time PHQ-9 Depression Total Score: 2 11/05/19 24 11:46 AM EST documented as of this encounter Care Teams Senior Qualitative Researcher Relationship Specialty Start Date End Date Stephenie Elliott MD [address] [place] [address] PCP - General Family Medicine 08/07/23 documented as of this encounter
--- OUTSIDE RECORDS SUMMARY | 2025-08-18 15:08 | XMS_ITS | Encounter Summary ---
Author Organization [employer] Address [address] [place] [address] 7 [place] [address] Care Team Providers Care Environmental Services Technician Name Role Phone Stephenie Elliott MD Primary Care Provider [phone] Reason for Visit * Reason Onset Date Comments new script 12/18/2022 Referral 12/18/2022 Encounter Details Date Type Department Care Team ([facility] st Contact Info) Description 12/18/2022 Telephone [facility] CHC MED & PEDS 505 [place], [place] [id number] Arun Mack MD 505 [place] [address] new script; Referral Social History Tobacco Use Types Packs/Day Years Used Date Smoking Tobacco: Never Smokeless Tobacco: Never Alcohol Use Standard Drinks/Week Comments Never 0 (1 standard drink = 0.6 oz pur e alcohol) Comments Unknown Sex and Gender Information Value Date Recorded Sex Assigned at Female 09/01/2022 10:36 AM EDT Legal Sex Female 10:36 AM EDT Gender Identity Female 09/01/2022 10:36 AM EDT Sexual Orientation Straight 09/01/2022 10 :36 AM EDT COVID-19 Exposure Response Date Recorded In the last 10 days, have yo u been in contact with someone who was confirmed or suspected to have Coronavirus/COVID-19? No / Unsure 11/19/2022 3:52 PM EST documented as of this encounter Miscellaneous Notes * Telephone Encounter - Arlene Garza RN - 12/18/2022 12:02 PM EST Tc from pt requesting a new script of medication Lantus solostar directions on script said inj 15 units at bedtime but pt stated Told her to do 20 units at bedtime. Pt will need a new script withnew directions. Pt stated want a referral for a endocrinology [facility] Endocr[facility]ology [place] [address] Mcmahon Please see above message. Thanks * Telephone Encounter - Dunia Begum - 12/18/2022 11:32 AM EST Tc from pt requesting a new script of medication Lantus solostar directions on script said inj 15 units at bedtime but pt stated Told her to do 20 units at bedtime. Pt will need a new script withnew directions. Pt stated want a referral for a endocrinology [facility] Endocrinology [address] Mcmahon documented in this encounter Plan of Treatment Upcoming Encounters Date Type Department Care Team (Late st Contact Info) Description 09/27/2025 10:45 AM EST Office Visit [facility] MED & PEDS [address] [place] [address] Alayna Brannon CNP 505 [place] [address] documented as of this encounter Visit Diagnoses Not on filedocumented in this encounter Care Teams Environmental Services Technician Relationship Specialty Start Date End Date Stephenie Elliott MD [address] [place] [address] PCP - General Family Medicine 08/07/23 documented as of this encounter
--- OUTSIDE RECORDS SUMMARY | 2025-08-18 15:08 | XMS_ITS | Encounter Summary ---
Author Organization [employer] Address 75 [facility] 7 [place] [address] Care Team Providers Care Distributor Cleaner Name Role Phone Stephenie Elliott MD Primary Care Provider [phone] Reason for Visit * Reason Onset Date Comments Letter for School/Work 09/21/2024 Encounter Details Date Type Department Care Team ([facility] Contact Info) Description 09/21/2024 Telephone [facility] MEDICINE [address] [place] [address] Stephenie Elliott MD 505 [place] [address] Letter for School/Work Social History Tobacco Use Types Packs/Day Years [...] encounter Miscellaneous Notes * Telephone Encounter - Ronnell Gregory - 09/21/2024 12:09 PM EST Tc from pt received a letter to have her work hours changed instead of 40 hours a week to 18 hours a wee. But she was advised that is not allowed and it would have to be 16 hours a week but the date stays the same 09/19/24. If any questions please contact pt at [phone]. documented in this encounter Plan of Treatment Upcoming Encounters Date Type Department Care Team (Late st Contact Info) Description 09/27/2025 10:45 AM EST Office Visit [facility] MED & PEDS 505 [place] [address] Alayna Brannon, MAAME 505 [place] [address] documented as of this encounter Visit Diagnoses Not on filedocumented in this encounter Additional Health Concerns Assessment Noted Time PHQ-9 Depression Total Score: 2 11/05/19 11:46 AM EST documented as of this encounter Care Teams Distributor Cleaner Relationship Specialty Start Date End Date Stephenie Elliott MD [address] [place] [address] PCP - General Family Medicine 08/07/23 documented as of this encounter
--- OUTSIDE RECORDS SUMMARY | 2025-08-18 15:08 | XMS_ITS | Encounter Summary ---
Author Organization [employer] Address [address] [place] [address] 7 [place] [address] Care Team Providers Care Vpk Teacher Name Role Phone Stephenie Elliott MD Primary Care Provider [phone] Reason for Visit * Reason Comments Med Refill Encounter Details Date Type Department Care Team ([facility] Contact Info) Description 06/12/2025 Refill [facility] CHC MED & PEDS [address] [place] [address] Jose Luis Sheldon MD 505 [place] [address] Recurrent UTI Social History Tobacco Use Types Packs/Day Years [...] Description 09/27/2025 10:45 AM EST Office Visit [facility] MED & PEDS 505 [place] [address] Alayna Brannon CNP 505 [place] [address] documented as of this encounter Visit Diagnoses Diagnosis Recurrent UTI Urinary tract infection, site not specified documented in this encounter Additional Health Concerns Assessment Noted Time PHQ-9 Depression Total Score: 2 11/05/19 24 11:46 AM EST documented as of this encounter Care Teams Vpk Teacher Relationship Specialty Start Date End Date Stephenie Elliott MD [address] [place] [address] PCP - General Family Medicine 08/07/23 documented as of this encounter
--- OUTSIDE RECORDS SUMMARY | 2025-08-18 15:08 | XMS_ITS | Encounter Summary ---
Author Organization [employer] Address 75 [facility] 7 [place] [address] Care Team Providers Care Biomedical Photographer Name Role Phone Stephenie Elliott MD Primary Care Provider [phone] Reason for Visit * Reason Comments Med Change Request Encounter Details Date Type Department Care Team ([facility] Contact Info) Description 11/05/2024 Refill [facility] CHC MED & PEDS [address] [place], [place] [phone] Stephenie Elliott MD 505 [place] [address] Social History Tobacco Use Types Packs/Day Years [...] [facility] [address] [place] [address] Alayna Brannon, [facility] 505 [place] [address] documented as of this encounter Visit Diagnoses Not on filedocumented in this encounter Additional Health Concerns Assessment Noted Time PHQ-9 Depression Total Score: 2 11/05/19 24 11:46 AM EST documented as of this encounter Care Teams Biomedical Photographer Relationship Specialty Start Date End Date Stephenie Elliott MD [address] [place] [address] PCP - General Family Medicine 08/07/23 documented as of this encounter
--- OUTSIDE RECORDS SUMMARY | 2025-08-18 15:08 | XMS_ITS | Encounter Summary ---
Author Organization [employer] Address 75 [facility] 7 [place] [address] Care Team Providers Care Clean Out Driller Helper Name Role Phone Stephenie Elliott MD Primary Care Provider [phone] Encounter Details Date Type Department Care Team ([facility] st Contact Info) Description 08/13/[address] [facility] CHC MED & PEDS [address] [place] [address] Jose Luis Sheldon MD [address] [place] [address] Social History Tobacco Use Types Packs/Day Years Used Date Smoking Tobacco: Never Passive Smoke Exposure: Never Smokeless Tobacco: Never Alcohol Use Standard Drinks/Week Comments Never 0 (1 standard drink = 0.6 oz pur e alcohol) Depression Answer Date Recorded Patient Health Questionnaire-9 Score 18 04/21/2023 Housing Stability Answer Date Recorded What is your housing situation today? I have jj foreman 08/10/[address] you li ve. Do you have problems with any of the following? None of the above 08/10/2023 Food Insecurity Answer Date Recorded Within the past 12 months, y ou worried that your food would run out before you got money to buy more: Never True 08/10/2023 Within the past 12 months,th e food you bought just didn't last and you didn't have enough money to get more: Never True 07/2023 Transportation Answer Date Recorded In the past 12 months, has l ack of transportation kept you from medical appts, meetings, work or from getting things needed for daily living? No 08/10/2023 Utilities Answer Date Recorded In the past 12 months, has t he electric, gas, oil or water company threatened to shut off services in your home? No 08/10/2023 Depression Answer Date Recorded Patient Health Questionnaire-2 [...] Description 09/27/2025 10:45 AM EST Office Visit [facility] CHC MED & PEDS [address] [place] [address] Alayna Brannon, BARREL LATHE OPERATOR 505 [place] [address] documented as of this encounter Visit Diagnoses Not on filedocumented in this encounter Additional Health Concerns Assessment Noted Time PHQ-9 Depression Total Score: 18 023 11:55 AM EDT documented as of this encounter Care Teams Clean Out Driller Helper Relationship Specialty Start Date End Date Stephenie Elliott MD [address] [place] [address] PCP - General Family Medicine 08/07/23 documented as of this encounter
--- OUTSIDE RECORDS SUMMARY | 2025-08-18 15:08 | XMS_ITS | Encounter Summary ---
Author Organization [employer] Address 75 [facility] 7 [place] [address] Care Team Providers Care Dairy Clerk Name Role Phone Stephenie Elliott MD Primary Care Provider [phone] Encounter Details Date Type Department Care Team ([facility] st Contact Info) Description 11/03/2023 Orders Only [facility] CHC MED & PEDS [address] [place] [address] Jose Luis Sheldon MD [address] [place] [address] Social History Tobacco Use Types Packs/Day Years [...] AM EDT documented as of this encounter Functional Status * Over the past 2 weeks, how often have you been bothered by any of the following problems? Question Answer Date of Assessment Author Patient Health Questionnaire -2 Score 2 11/05/2023 11:46 AM Ryland Moyer [place] * If you checked off any problems on this questionnaire so far, Question Answer Date of Assessment Author How difficult have these problems made it for you to do your work, take care of things at home, or get along with other people? Not difficult at all 11/05/2023 11:46 AM Ryland Moyer [place] * Over the past 2 weeks, how often have you been bothered by any of the following problems? Question Answer Date of Assessment Author Little interest or pleasure in doing things Several days 11/05/2023 11:46 AM Ryland Moyer [place] Feeling down, depressed, or hopeless Several days 11/05/2023 11:46 AM Ryland Moyer [place] Trouble falling or staying asleep, or sleeping too much Not at all 11/05/2023 11:46 AM Ryland Moyer [place] Feeling tired or having little energy Not at all 11/05/2023 11:46 AM Ryland Moyer [place] Poor appetite or overeating Not at all 11/05/2023 11 :46 AM Ryland Moyer MA Feeling bad about yourself - or that you are a failure or have let yourself or your family down Not at all 11/05/2023 11:46 AM Ryland Moyer MA Trouble concentrating on things, such as reading the newspaper or watching television Not at all 11/05/2023 11:46 AM Ryland Moyer MA Moving or speaking so slowly that other people could have noticed? Or the opposite - being so fidgety or restless that you have been moving around a lot more than usual. Not at all 11/05/2023 11:46 AM Ryland Montoya MA Thoughts that you would be better off or hurting yourself in some way Not at all 11/05/2023 11:46 AM Ryland Moyer MA Patient Health Questionnaire-9 Score 2 11/05/2023 11:46 AM Ryland Moyer MA documented as of this encounter Plan of Treatment Upcoming Encounters Date Type Department Care Team (Late st Contact Info) Description 09/27/2025 10:45 AM EST Office Visit [facility] MED & PEDS [address] [place] [address] Alayna Brannon, MAAME 505 [place] [address] documented as of this encounter Visit Diagnoses Not on filedocumented in this encounter Additional Health Concerns Assessment Noted Time PHQ-9 Depression Total Score: 18 023 11:55 AM EDT documented as of this encounter Care Teams Dairy Clerk Relationship Specialty Start Date End Date Stephenie Elliott MD 230 [place] [address] PCP - General Family Medicine 08/07/23 documented as of this encounter
--- OUTSIDE RECORDS SUMMARY | 2025-08-18 15:08 | XMS_ITS | Encounter Summary ---
Author Organization [employer] Address [address] [facility] 7 [place] [address] Care Team Providers Care Property Management Coordinator Name Role Phone Stephenie Elliott MD Primary Care Provider [phone] Reason for Visit * Reason Onset Date Comments Nurse Triage 06/09/2025 Encounter Details Date Type Department Care Team ([facility] st Contact Info) Description 06/09/[address] [facility] [address] [place] [address] Stephenie Elliott MD [address] [place] [address] Nurse Triage Social History Tobacco Use Types Packs/Day Years [...] is your housing situation today? I have jjnick foreman 08/18/[address] you [...] encounter Miscellaneous Notes * Telephone Encounter - Zenaida Chadwick RN - 06/09/2025 10:55 AM EDT called pt to triage, spoke to pt. pt states urinary frequency, urgency, chills, and strong odor. ptdenies burning, blood, back pain, fevers, or other associated symptoms. pt requesting labs to be done and advised would need to be seen first. pt insisting that she usually just goes and has labs done. this is a difficult triage call, as pt keeps talking over me whenever i try to interact. advised no available appt today or Thursday and given options: visit the walk in center in the [facility], visit an UC, or call back on Thursday for any open appropriate appt. will task to team [place] to schedule OV as appropriate. pt understands but hangs up before acknowledging. insurance verified. Protocol Used: Urinary Symptoms (Adult) Protocol-Based Disposition: See in Office or Video Visit within 2 Weeks Positive Triage Questions: * Can't control passage of urine (i.e., urinary incontinence, wetting self) and present > 2 weeks * Has to get out of bed to urinate > 2 times a night (i.e., nocturia) * All other urine symptoms * All higher-acuity triage questions were negative Care Advice Discussed: * Reasons To Call Back - Pain or burning with urination - You become worse * Reasons To Call Back - Fever occurs - Pain or burning with urination - Unable to urinate and bladder feels full - You become worse * Telephone Encounter - Marina Mohamud Koz - 06/09/2025 8:57 AM EDT Symptoms: Urine Symptoms, Chills Outcome: Schedule a same-day appointment or talk to a nurse or provider today Reason: Caller denied all higher acuity questions The caller accepted this outcome. Contact pt at [phone] documented in this encounter Plan of Treatment Upcoming Encounters Date Type Department Care Team (Late st Contact Info) Description 09/27/2025 10:45 AM EST Office Visit [facility] [address] [place] [address] Alayna Brannon CNP [address] [place] [address] documented as of this encounter Visit Diagnoses Not on filedocumented in this encounter Additional Health Concerns Assessment Noted Time PHQ-9 Depression Total Score: 2 11/05/19 24 11:46 AM EST documented as of this encounter Care Teams Property Management Coordinator Relationship Specialty Start Date End Date Stephenie Elliott MD [address] [place] [address] PCP - General Family Medicine 08/07/23 documented as of this encounter
--- OUTSIDE RECORDS SUMMARY | 2025-08-18 15:08 | XMS_ITS | Encounter Summary ---
Author Organization [employer] Address [address] [facility] [address] [place] [address] Care Team Providers Care Operations Manager Station Name Role Phone Stephenie Elliott MD Primary Care Provider [phone] Encounter Details Date Type Department Care Team (Late st Contact Info) Description 07/01/2024 Orders Only [facility] [address] [place] [address] ProviderCelestino MD Social History Tobacco Use Types Packs/Day Years [...] Description 09/27/2025 10:45 AM EST Office Visit [facility] [address] [place], [place] [id number] Alayna Brannon CNP [address] [place], [place] [phone] documented as of this encounter Procedures Procedure Name Priority Date/Time Associated Diagnosis Comments COLONOSCOPY Routine 11/27/2020 2:55 PM EST documented in this encounter Results * Colonoscopy (11/27/2020 2:55 PM EST) Anatomical Region Laterality Modality Endoscopy us Historical Provider ENDOSCOPY PROCEDURE ORDER BLAZE Final Result documented in this encounter Visit Diagnoses Not on filedocumented in this encounter Additional Health Concerns Assessment Noted Time PHQ-9 Depression Total Score: 2 11/05/19 24 11:46 AM EST documented as of this encounter Care Teams Operations Manager Station Relationship Specialty Start Date End Date Stephenie Elliott MD [address] [place] [address] PCP - General Family Medicine 08/07/23 documented as of this encounter
--- OUTSIDE RECORDS SUMMARY | 2025-08-18 15:08 | XMS_ITS | Clinical Summary ---
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 06/23/2025 3:46 PM EDT 06/23/2025 3:47 PM EDT Narrative [facility] - 06/24/2025 4:56 PM EDT FASTING:NO FASTING: NO us Lane Tran MD LAB URINE ORDERABLES Final Resul t Performing Organization Address City[facility]/ZIP Co de Phone Number [facility] [address], [place] [address] [facility] [place] [facility] [address] [place] [address] * (ABNORMAL) CBC auto differential (06/23/2025 3:46 PM EDT) Pathologist [facility] White Blood Cell Count 6.0 3.8 - 10.8 Thousand/ uL [facility] [place] [facility] Red Blood Cell Count 4.27 3.80 - 5.10 Million/u L [facility] [place] [facility] Hemoglobin 11.2(L) 11.7 - 15.5 g/dL [facility] [place] [facility] Hematocrit 36.2 35.0 - 45.0 % [facility] [place] [facility] MCV 84.8 80.0 - 100.0 fL [facility] [place] [facility] MCH 26.2(L) 27.0 - 33.0 pg [facility] [place] [facility] MCHC 30.9(L) 32.0 - 36.0 g/dL [facility] [place] [facility] Comment: For adults, a slight decrease in the calculated MCHC value (in the range of 30 to 32 g/dL) is most likely not clinically significant; however, it should be interpreted with caution in correlation with other red cell parameters and the patient's clinical condition. RDW 13.6 11.0 - 15.0 % [facility] [place] [facility] Platelet Count 170 140 - 400 Thousand/ uL [facility] [place] [facility] MPV [facility] [place] [facility] Comment: Due to platelet or RBC variability in size or shape the result cannot be reported accurately. Absolute Neutrophils 2,886 1,500 - 7,800 cells/uL [facility] [place] [facility] Absolute Lymphocytes 2,460 850 - 3,900 cells/uL [facility] [place] [facility] Absolute Monocytes 474 200 - 950 cells/uL [facility] [place] [facility] Absolute Eosinophils 132 15 - 500 cells/uL [facility] [place] [facility] Absolute Basophils 48 0 - 200 cells/uL [facility] [place] [facility] Neutrophils 48.1 % [facility] [place] [facility] Lymphocytes 41.0 % [facility] [place] [facility] Monocytes 7.9 % [facility] [place] [facility] Eosinophils 2.2 % [facility] [place] [facility] Basophils 0.8 % [facility] [place] [facility] 06/23/2025 3:46 PM EDT 06/23/2025 3:47 PM EDT Narrative [facility] - 06/24/2025 4:56 PM EDT FASTING:NO FASTING: NO Lane Tran MD LAB BLOOD ORDERABLES Final Resul t Performing Organization Address [facility] de Phone Number LUANNE [address], [facility] [place] [address] [facility] [place] [facility] [address] [place] [address] * (ABNORMAL) Hemoglobin A1c (06/23/2025 3:46 PM EDT) Hemoglobin A1c 6.7(H) <5.7 % [facility] [place] [facility] Comment: For someone without known diabetes, a hemoglobin A1c value of 6.5% or greater indicates that they may have diabetes and this should be confirmed with a follow-up test. For someone with known diabetes, a value <7% indicates that their diabetes is well controlled and a value greater than or equal to 7% indicates suboptimal control. A1c targets should be individualized based on duration of diabetes, age, comorbid conditions, and other considerations. Currently, no consensus exists regarding use of hemoglobin A1c for diagnosis of diabetes for children. 06/23/2025 3:46 PM EDT 06/23/2025 3:47 PM EDT Narrative [facility] - 06/24/2025 4:56 PM EDT FASTING:NO FASTING: NO Lane Tran MD LAB BLOOD ORDERABLES Final Resul t Performing Organization Address [facility] Co de Phone Number LUANNE [address], [facility] [place] [address] [facility] [place] [facility] [address] [place] [address] * (ABNORMAL) Lipid Panel, Standard (06/23/2025 3:46 PM EDT) Cholesterol, Total 185 <200 mg/dL [facility] [place] [facility] HDL Cholesterol 51 > OR = 50 mg/dL [facility] [place] [facility] Triglycerides 170(H) <150 mg/dL [facility] [place] [facility] LDL Cholesterol 105(H) mg/dL [facility] [employer] [place] [facility] Comment: Reference range: <100 Desirable range <100 mg/dL for primary prevention; <70 mg/dL for patients with CHD or diabetic patients with > or = 2 CHD risk factors. LDL-C is now calculated using the Malik calculation, which is a validated novel method providing better accuracy than the Friedewald equation in the estimation of LDL-C. Medardo SS et al. JAVID. 2013;310(19): 2623-3947 (http://education.[employer]/faq/JBM248) Chol/HDLC Ratio 3.6 <5.0 (calc) [facility] [place] [facility] Non-HDL Cholesterol 134(H) <130 mg/dL [facility] [place] [facility] Comment: For patients with diabetes plus 1 major ASCVD risk factor, treating to a non-HDL-C goal of <100 mg/dL (LDL-C of <70 mg/dL) is considered a therapeutic option. 06/23/2025 3:46 PM EDT 06/23/2025 3:47 PM EDT Narrative [facility] - 06/24/2025 4:56 PM EDT FASTING:NO FASTING: NO us Lane Tran MD LAB BLOOD ORDERABLES Final Resul t [facility] [address], [place] [address] [facility] [place] [facility] [address] [place] [address] * (ABNORMAL) Comprehensive Metabolic Panel (06/23/2025 3:46 PM EDT) Glucose 252(H) 65 - 139 mg/dL [facility] [place] [facility] Comment: Non-fasting reference interval Urea Nitrogen (BUN) 15 7 - 25 mg/dL [facility] [place] [facility] Creatinine, Serum 0.76 0.50 - 1.05 mg/dL [facility] [place] [facility] eGFR 87 > OR = 60 mL/min/1. 73m2 [facility] [place] [facility] BUN/Creatinine Ratio SEE NOTE: (calc) [facility] Comment: Not Reported: BUN and Creatinine are within reference range. Sodium 137 135 - 146 mmol/L [facility] Potassium 4.3 3.5 - 5.3 mmol/L [facility] Chloride 101 98 - 110 mmol/L [facility] Carbon Dioxide 27 20 - 32 mmol/L [facility] Calcium 9.1 8.6 - 10.4 mg/dL [facility] Protein, Total 7.5 6.1 - 8.1 g/dL [facility] Albumin 4.1 3.6 - 5.1 g/dL [facility] Globulin 3.4 1.9 - 3.7 g/dL (calc) [facility] Albumin/Globuli n Ratio 1.2 1.0 - 2.5 (calc) [facility] Bilirubin, Total 0.5 0.2 - 1.2 mg/dL [facility] Alkaline Phosphatase 75 37 - 153 U/L [facility] AST 18 10 - 35 U/L [facility] ALT 21 6 - 29 U/L [facility] 06/23/2025 3:46 PM EDT 06/23/2025 3:47 PM EDT Narrative [facility] - 06/24/2025 4:56 PM EDT FASTING:NO FASTING: NO us Lane Tran MD LAB BLOOD ORDERABLES Final Resul t [facility] [address], [place] [address] [facility] [place] [facility] [address] [place] [address] * Culture, Urine, Routine (06/23/2025 9:55 AM EDT) Urine Urine specimen obtained by clean catch procedure / Unknown 06/23/2025 9:55 AM EDT 06/23/2025 5:22 PM EDT Comment:[facility] Narrative [facility] - 06/26/2025 7:23 AM EDT Escherichia coli Quant > 100,000 cfu/mL Escherichia coli: Ampicillin >=32(R) Escherichia coli: Cefazolin (Urine) 8(S) Escherichia coli: Cefepime <=0.12(S) Escherichia coli: Ceftriaxone <=0.25(S) Escherichia coli: Ciprofloxacin >=4(R) Escherichia coli: Gentamicin <=1(S) Escherichia coli: Nitrofurantoin <=16(S) Escherichia coli: Trimethoprim/Sulfamethoxazole >=320(R) Specimen Source: Urine clean catch Lane Tran MD LAB MICROBIOLOGY - GENERAL ORDER BLAZE Final Result [facility] [address] [place] [address] [phone] * HPV mRNA E6/E7 w/Reflex to HPV Genotypes 16, 18/45 (09/01/2023 3:17 PM EDT) HPV nRNA E6/E7 Not Detected Not Detected [facility] Comment:Methodology: Transcr iption-Mediated AmplificationThis assay detects E6/E7 viral messenger RNA (mRNA) from 14high-risk HPV types (16,18,31,33,35,39,45,51,52,56,58,59,66,68).Cervical sources are required for HPV testing.If a vaginal source from a patient who has had atotal hysterectomy with removal of cervix wassubmitted, please contact the testing laboratoryfor alternative testing options.For additional information, please refer tohttp://education.[employer]/faq/PIY221j5(This link if provided for information/educational purposes only.)THIS TEST WAS PERFORMED AT:[facility] [place] [phone] WHITTAKER MD HPV mRNA E6/E7 [facility] HPV 16 RNA [facility] HPV 18/45 RNA [facility] 09/01/2023 3:17 PM EDT 09/02/2023 9:00 AM EDT us Generic External Data Provider LAB CYTOLOGY ORDE RABLES Final Result [facility] [address] [place] [address] [phone] * Pap Smear (09/01/2023 3:17 PM EDT) 09/01/2023 3:17 PM EDT 09/02/2023 9:00 AM EDT Narrative [facility] - 09/15/2023 8:04 AM EST ----- ------- Name: GeorgeraminRin Age/Sex: 63/F : 1960 Unit#: [id number] Attend Dr: Courtney Seymour CNM Re09/01/23 Status: DEP REF Location: [facility] Disch: ----- ------- SPEC : [id number] RECD: 09/02/23 STATUS: ROGELIO THOMAS NUM: [id number] BERNICE: 09/01/23 [facility] DR: Courtney Seymour CNM ENTERED: 09/02/23 SP TYPE: Pap Smr OTHR DR: [facility] ORDERED: Pap Smear Interpretation Satisfactory for evaluation. Mild inflammation. Negative for intraepithelial lesion or malignancy. HPV mRNA E6/E7: NOT DETECTED This assay detects E6/E7 viral messenger RNA (mRNA) from 14 high-risk HPV types (16, 18, 31, 33, 35, 39, 45, 51, 52, 56, 58, 59, 66, 68) HPV testing performed by [facility], [place], [place]. See reference laboratory pion of the EMR for entire report. Clinical Information LMP: Menopausal Previous PAP test: 2020, WNL Material Received ThinPrep-Cervical Copies To: [facility] [address] [facility] [place] [address] Courtney Seymour [address] Hernandez [address] [place] [phone] ----- ------- Signed (signature on file) ANGEL Chiang (ASCP) 09/15/23 0804 ----- ------- END OF REPORT us Generic External Data Provider LAB CYTOLOGY BRENDA JAIME Final Result [facility] [address] [place] [address] [phone] * HIV-1 RNA, Quantitative, Real-Time PCR with Reflex to Genotype (RTI, PI, Integrase) (11/26/2022 11:45 AM EST) HIV 1 RNA, QN PCR NOT DETECTED copies/mL [facility] [facility], HIV 1 RNA, QN PCR NOT DETECTED Log copies/mL [facility] [facility], Comment: REFERENCE RANGE: NOT DETECTED copies/mL NOT DETECTED Log copies/mL This test was performed using Real-Time Polymerase Chain Reaction. Reportable range is 20 to 10,000,000 copies/mL (1.30-7.00 Log copies/mL). 11/26/2022 11:4 5 AM EST 11/26/2022 11:46 AM EST Narrative [facility] - 11/29/2022 4:44 PM EST FASTING:NO FASTING: NO Arun Agosto MD LAB BLOOD ORDERABL ES Final Result Performing Organization Address City/State/[facility] de Phone Number [facility] [address], [place] [address] [facility], [address] [place] [address] * Hepatitis C Antibody with Reflex to HCV, RNA, Quantitative, Real-Time PCR (11/26/2022 11:45 AM EST) Hepatitis C Antibody NON-REACT ORALIA NON-REACT ORALIA [facility] [place] [facility] Index 0.11 <1.00 [facility] Comment: HCV antibody was non-reactive. There is no laboratory evidence of HCV infection. In most cases, no further action is required. However, if recent HCV exposure is suspected, a test for HCV RNA (test code 84902) is suggested. For additional information please refer to http://education.[employer]/faq/EGD95j4 (This link is being provided for informational/ educational purposes only.) Blood Venous blood specimen / Unknown 11/26/2022 11:45 AM EST 11/26/2022 11:46 AM EST Narrative [facility] - 11/29/2022 4:44 PM EST FASTING:NO FASTING: NO Arun Agosto MD LAB BLOOD ORDERABL ES Final Result [facility] [address] [facility], 3rd Fl, [place] [address] [facility] [address] [place] , ([address]) [place] [address] * Mammography Report 1 (05/22/2022 11:55 AM EDT) Anatomical Region Laterality Modality Breast Bilateral Mammography 05/22/2022 11:5 5 AM EDT Narrative 05/27/2022 7:55 AM EDT Refer to the Notes tab for result details [facility] Procedure: Mammography Report 1 Procedure Note Provider, Celestino, - 01/25/2023 Refer to the Notes tab for result details [facility] Procedure: Mammography Report 1 Arun Agosto MD IMG BI PROCEDURES Final Result * Colonoscopy (11/27/2020 2:55 PM EST) Anatomical Region Laterality Modality Endoscopy Celestino Provider ENDOSCOPY PROCEDURE ORDER BLAZE Final Result from Last 3 Months or Most Recently Relevant to Health Maintenance Insurance [address] # [id number] [place] [address] [facility] [address] [id number] [place] [address] # [id number] [place] [address] # [id number] [place] [address] Care Teams Dba Developer Relationship Specialty Start Date End Date Stephenie Elliott MD [address] [place] [address] PCP - General Family Medicine 08/07/23
--- OUTSIDE RECORDS SUMMARY | 2025-08-18 15:08 | XMS_ITS | Encounter Summary ---
Author Organization [employer] Address [address] [facility] 7 [place] [address] Care Team Providers Care Disc Pad Grinder Name Role Phone Stephenie Elliott MD Primary Care Provider [phone] Encounter Details Date Type Department Care Team (Late st Contact Info) Description 07/24/2023 Orders Only [facility] [address] [place], [place] [phone] ProviderCelestino MD Social History Tobacco Use Types [...] Description 09/27/2025 10:45 AM EST Office Visit [facility] [address] [place], [place] [phone] Alayna Brannon CNP [address] [place], [place] [phone] documented as of this encounter Procedures Procedure Name Priority Date/Time Associated Diagnosis Comments HM PAP/HPV Routine 01/25/2021 documented in this encounter Results * Hm Pap Smear (01/25/2021) us Historical Provider HEALTH MAINTENANCE Final Result documented in this encounter Visit Diagnoses Not on filedocumented in this encounter Additional Health Concerns Assessment Noted Time PHQ-9 Depression Total Score: 18 023 11:55 AM EDT documented as of this encounter Care Teams Disc Pad Grinder Relationship Specialty Start Date End Date Stephenie Elliott MD [address] [place] [address] PCP - General Family Medicine 08/07/23 documented as of this encounter
--- OUTSIDE RECORDS SUMMARY | 2025-08-18 15:08 | XMS_ITS | Encounter Summary ---
Author Organization [employer] Address [address] [facility] 7t [place] [address] Care Team Providers Care Anode Crew Supervisor Name Role Phone Stephenie Elliott MD Primary Care Provider [phone] Encounter Details Date Type Department Care Team (Latest Contact Info) Description 06/26/2025 Results Follow-Up [facility] [address] [place] [address] Lane Tran MD [address] [place] [address] Lipid Panel, Standard, Comprehensive Metabolic Panel, Albumin, Random Urine W/Creatinine, Additional followed-up results: 2 Social History Tobacco Use Types Packs/Day Years [...] [facility] [address] [place] [address] BrannonAlayna, COMPOSITION ROOFER [address] [place] [address] documented as of this encounter Visit Diagnoses Not on filedocumented in this encounter Additional Health Concerns Assessment Noted Time PHQ-9 Depression Total Score: 2 11/05/19 24 11:46 AM EST documented as of this encounter Care Teams Anode Crew Supervisor Relationship Specialty Start Date End Date Stephenie Elliott MD [address] [place] [address] PCP - General Family Medicine 08/07/23 documented as of this encounter
--- OUTSIDE RECORDS SUMMARY | 2025-08-18 15:08 | XMS_ITS | Encounter Summary ---
Author Organization [employer] Address [address] [facility] 7t [place] [address] Care Team Providers Care Access Service Representative Name Role Phone Stephenie Elliott MD Primary Care Provider [phone] Encounter Details Date Type Department Care Team (Latest Contact Info) Description 08/18/2025 Travel Social History Tobacco Use Types Packs/Day Years [...] Description 09/27/2025 10:45 AM EST Office Visit [facility] [address] [place], [place] [phone] Alayna Brannon, PAPER TWISTER [address] [place] [address] documented as of this encounter Visit Diagnoses Not on filedocumented in this encounter Additional Health Concerns Assessment Noted Time PHQ-9 Depression Total Score: 2 11/05/19 24 11:46 AM EST documented as of this encounter Care Teams Access Service Representative Relationship Specialty Start Date End Date Stephenie Elliott MD [address] [place] [address] PCP - General Family Medicine 08/07/23 documented as of this encounter
--- OUTSIDE RECORDS SUMMARY | 2025-08-18 15:08 | XMS_ITS | Clinical Summary ---
Author Organization [facility] Address [address] [place] [address] Care Team Providers Care Civil Structural Engineer Name Role Phone Stephenie Elliott MD Primary Care Provider Surgical History Surgery Date Site/Laterality Comments BACK SURGERY 08/16/07 PROCEDURE: HISTORICAL BACK SURGERY; COMMENT: L3-4 left microdiscetomy, Dr. Aguilar. COLONOSCOPY 11/04/2011 PROCEDURE: ND COLONOSCOPY FLX DX W/COLLJ SPEC WHEN PFRMD; COMMENT: normal ESOPHAGOGASTRODUODENOSCOPY 11/04/2011 PROCEDURE: ND ESOPHAGOGASTRODUODENOSCOPY TRANSORAL DIAGNOSTIC; COMMENT: normal on omeprazole 20 mg once a day OTHER SURGICAL HISTORY PROCEDURE: ND LIG/TRNSXJ FLP TUBE ABDL/VAG APPR UNI/BI Medical History Medical History Date Comments Other and unspecified hyperlipidemia 10/06/2005 DX:Other and unspecified hyperlipidemia Adjustment disorder with dep ressed mood 07/23/06 DX:Adjustment disorder with depressed mood; COMMENT: Psych admission at [facility] Type II or unspecified type diabetes mellitus without mention of complication, not stated as uncontrolled 10/06/2005 DX:Type II or unspecified ty pe diabetes mellitus without mention of complication, not stated as uncontrolled; COMMENT: 89 this am Esophageal reflux 10/07/2005 DX:Esophageal reflux Noncompliance 08/24/2014 DX:Noncompliance ; COMMENT: 08/24/14 referrals tried to contact patient several times by phone and sent letter to patient as well with no response Family History Medical History Relation Name Comments Breast cancer Aunt PATERNAL ABOUT 65 Blindness Brother 1 Cataracts Brother 1 Glaucoma Brother 1 Prostate cancer Brother 2 half brother Lung cancer Brother 3 not a smoker, l mechelle and stomach? Spontaneous Abortions Father Ovarian cancer Sister half sister ( from same father) Macular degeneration Neg Hx Strabismus Neg Hx Relation Name Status Comments Aunt Brother 1 Brother 2 Brother 3 Brother 4 Alive x3, one diabeti c, glaucoma, HTN Father (Age 50s) poisoned in [place] Mother (Age 50s) massive s troke, HTN Sister Alive x2 HTN Social History Tobacco Use Types Packs/Day Years Used Date Smoking Tobacco: Never Smokeless Tobacco: Never Alcohol Use Standard Drinks/Week Comments No 0 (1 standard drink = 0.6 oz pur e alcohol) Comments Unknown Sex and Gender Information Value Date Recorded Sex Assigned at Not on file Legal Sex Female 8:14 PM EST Gender Identity Not on file Sexual Orientation Not on file Obstetrics History Last Filed Vital Signs Vital Sign Reading Time Taken Comments Blood Pressure - - Pulse - - Temperature - - Respiratory Rate - - Oxygen Saturation - - Inhaled Oxygen Concentration - - Weight 89.4 kg (197 lb) 04/06/2024 12:17 PM EDT Height - - Body Mass Index - - Plan of Treatment Health Maintenance Due Date Last Done Comments Breast Cancer Screening 1960 Colorectal Cancer Screening: Colonoscopy 1960 Diabetes: Annual GFR (Glomerular Filtration Rate) 1960 Diabetes: Annual Foot Exam 1971 Diabetes: Annual Retina Eye Exam 1971 Cervical Cancer Screening: Pap Smear 1982 Zoster Vaccines (1 of 2) 2011 IPV Vaccines (2 of 3 - Adult catch-up series) 02/16/2013 01/19/2013 Pneumococcal Vaccine: 50+ Years (2 of 2 - PCV) 08/27/2013 08/27/2012, 03/11/2002 DTaP,Tdap,and Td Vaccines (2 - Td or Tdap) 03/11/2022 03/11/2012 Cholesterol Screening (Lipid Panel) 05/31/2024 Diabetes: Annual Urine Albumin-Creatinine Ratio (uACR) 05/31/2024 Diabetes: Blood Sugar Control Test (HGBA1C) 05/31/2024 HIV Screening 05/31/2024 Hepatitis C Screening 05/31/2024 Social Influencers of Health Screening 05/31/2024 Depression Screening 11/02/2024 COVID-19 Vaccine ( season) 2025 Influenza Vaccine (#1) 2025 2, 09/04/2010, 12/05/2009, Additional history exists RSV Immunization Adult Patients (1 - 1-dose 75+ series) 2036 MMR Vaccines Aged Out 05/10/2002 No longer eligi ble based on patient's age to complete this topic Hepatitis B Vaccines Completed 01/19/2006, 11/11/2002, 06/13/2002, Additional history exists Meningococcal ACWY Vaccine Aged Out 01/19/2013, No longer eligible based on patient's age to complete this topic HIB Vaccines Aged Out No longer eligi [...] patient's age to complete this topic RSV Immunization Patients Under 20 months Aged Out No longer eligible based on patient's age to complete this topic Varicella Vaccines Aged Out No longer eligible based on patient's age to complete this topic Care Teams Civil Structural Engineer Relationship Specialty Start Date End Date Stephenie Elliott MD [address] [place] [address] PCP - General 12/10/23
--- OUTSIDE RECORDS SUMMARY | 2025-08-18 15:08 | XMS_ITS | Encounter Summary ---
Author Organization [employer] Address [address] [facility] 7 [place] [address] Care Team Providers Care Pharmacist Apprentice Name Role Phone Stephenie Elliott MD Primary Care Provider [phone] Encounter Details Date Type Department Care Team ([facility] st Contact Info) Description 06/26/2025 Results Follow-Up [facility]EDS [address] [place] [address] Lane Tran MD [address] [place] [address] POCT urinalysis dipstick manually resulted, Culture, Urine, Routine Social History Tobacco Use Types Packs/Day Years [...] 09/27/2025 10:45 AM EST Office Visit [facility] MED & PEDS [address] [place] [address] Alayna Brannon, DETECTIVE [address] [place] [address] documented as of this encounter Visit Diagnoses Not on filedocumented in this encounter Additional Health Concerns Assessment Noted Time PHQ-9 Depression Total Score: 2 11/05/19 24 11:46 AM EST documented as of this encounter Care Teams Pharmacist Apprentice Relationship Specialty Start Date End Date Stephenie Elliott MD [address] [place] [address] PCP - General Family Medicine 08/07/23 documented as of this encounter
--- OUTSIDE RECORDS SUMMARY | 2025-08-18 15:08 | XMS_ITS | Encounter Summary ---
Author Organization [employer] Address [address] [facility] 7 [place] [address] Care Team Providers Care Insole Filler Name Role Phone Stephenie Elliott MD Primary Care Provider Reason for Visit * Reason Onset Date Comments Appointment Request 06/21/2025 Encounter Details Date Type Department Care Team ([facility] st Contact Info) Description 06/21/[address] [facility] MEDICINE [address] [place] [address] Stephenie Elliott MD [address] [place] [address] Appointment Request Social History Tobacco Use Types Packs/Day Years [...] encounter Miscellaneous Notes * Telephone Encounter - Marina Moreno - 06/21/2025 9:18 AM EDT Tc from pt requesting an appt to follow up in her diabetics Contact pt at [phone] or [phone] documented in this encounter Plan of Treatment Upcoming Encounters Date Type Department Care Team (Late st Contact Info) Description 09/27/2025 10:45 AM EST Office Visit [facility] MED & PEDS [address] [place] [address] Alayna Brannon CNP [address] [place] [address] documented as of this encounter Visit Diagnoses Not on filedocumented in this encounter Additional Health Concerns Assessment Noted Time PHQ-9 Depression Total Score: 2 11/05/19 24 11:46 AM EST documented as of this encounter Care Teams Insole Filler Relationship Specialty Start Date End Date Stephenie Elliott MD [address] [place] [address] PCP - General Family Medicine 08/07/23 documented as of this encounter
--- OUTSIDE RECORDS SUMMARY | 2025-08-18 15:08 | XMS_ITS | Encounter Summary ---
Author Organization [employer] Address [address] [place] [id number] Care Team Providers Care Towel Weaver Name Role Phone Stephenie Elliott MD Primary Care Provider [phone] Reason for Visit * Reason Comments Med Refill Encounter Details Date Type Department Care Team (Late st Contact Info) Description 10/09/2022 Refill [facility] MEDICINE [address] [place] [address] Arun Mack MD [address] [place], [place] [phone] Social History Tobacco Use Types Packs/Day Years Used Date Smoking Tobacco: Never Assessed Comments Unknown Sex and Gender Information Value [...] Description 09/27/2025 10:45 AM EST Office Visit [facility]S [address] [place], [place] [phone] Alayna Brannon CNP [address] [place], [place] [phone] documented as of this encounter Visit Diagnoses Not on filedocumented in this encounter Care Teams Towel Weaver Relationship Specialty Start Date End Date Stephenie Elliott MD [address] [place] [address] PCP - General Family Medicine 08/07/23 documented as of this encounter
--- OUTSIDE RECORDS SUMMARY | 2025-08-18 15:09 | XMS_ITS | Encounter Summary ---
Author Organization [employer] Address [address] [facility] 7 [place] [address] Care Team Providers Care Civil Engineering Director Name Role Phone Stephenie Elliott MD Primary Care Provider [phone] Encounter Details Date Type Department Care Team (Late Contact Info) Description 10/13/2022 Orders Only [facility] MEDICINE [address] [place], [place] [phone] Arun Mack MD [address] [place], [place] [phone] Type 2 diabetes mellitus with other circulatory complication, with long-term current use of insulin ([facility]) Social History Tobacco Use Types Packs/Day Years [...] Encounters Date Type Department Care Team (Late Contact Info) Description 09/27/2025 10:45 AM EST Office Visit [facility] [address] [place], [place] [phone] Alayna Brannon CNP [address] [place], [place] [phone] documented as of this encounter Visit Diagnoses Diagnosis Type 2 diabetes mellitus with other circulatory complication, with long-term current use of insulin ([facility]) documented in this encounter Care Teams Civil Engineering Director Relationship Specialty Start Date End Date Stephenie Elliott MD [address] [place] [address] PCP - General Family Medicine 08/07/23 documented as of this encounter
== END 2025-08-18 12:45 | disposition home or self-care (01) ==
LOC: HO.CHCLNP 12:44
PROVIDERS: PCP Family Medicine; Visit Provider Family Medicine
DX: N39.0 Urinary tract infection, site not specified (principal)
CPT/HCPCS: 81001; 87086